=== PATIENT | female | born 1940 | race Caucasian/White ===

== ENCOUNTER → 2016-11-18 | Outpatient (CLI) | payer MEDICARE ==
[2016-11-18 08:37] LABS: Basophils # (A) 0.1 k/uL (0-0.2); Basophils % (A) 1 %; CH 30.2; CHCM 32.8; Eosinophils # (A) 0.7 k/uL (0-0.7); Eosinophils % (A) 8 %; HCT 43.3 % (34.0-46.0); HDW 2.44; HGB 13.8 gm/dL (11.4-16.0); Luc # (Auto) 0.17; Luc % (Auto) 2; Lymphocytes # (A) 2.6 k/uL (1.0-4.8); Lymphocytes % (A) 30 %; MCH 29.5 pg (25.0-35.0); MCV 92.3 fL (80.0-100.0); Mean Platelet Volume 6.3; Monocytes # (A) 0.5 k/uL (0-1.0); Monocytes % (A) 6 %; Neutrophils # (A) 4.5 k/uL (1.3-7.7); Neutrophils % (A) 53 %; RBC 4.69 m/uL (3.80-5.40); RDW 12.9 % (11.5-15.5); WBC 8.5 k/uL (3.8-10.6)
[2016-11-18 09:06] LABS: ALT 36 U/L (9-52); AST 36 U/L (14-36); Alkaline Phosphatase 59 U/L (38-126); Anion Gap 8 mmol/L; Blood Urea Nitrogen 17 mg/dL (7-17); Calcium 9.6 mg/dL (8.4-10.2); Carbon Dioxide 27 mmol/L (22-30); Chloride 104 mmol/L (98-107); Cholesterol 186 mg/dL (<200); Glucose 122 mg/dL (74-99); HDL Cholesterol 74 mg/dL (40-60); Non-African American GFR(MDRD) >60 (>60 ml/min/1.73 sqM); Potassium 4.7 mmol/L (3.5-5.1); Sodium 139 mmol/L (137-145); Total Bilirubin 0.5 mg/dL (0.2-1.3); Total Protein 6.5 g/dL (6.3-8.2); Triglycerides 109 mg/dL (<150)
== END | disposition home or self-care (01) ==
LOC: LABWHC1 07:54
PROVIDERS: ATTEND Family Medicine
DX: Z00.00 Encounter for general adult medical examination without abnormal findings (principal); E55.9 Vitamin D deficiency, unspecified
CPT/HCPCS: 36415; 80053; 80061; 82306; 84443; 85025

== ENCOUNTER 2016-12-16 20:29 | Emergency (ER) | payer MEDICARE ==
[2016-12-16] MEDS ORDERED: SODIUM CHLORIDE 0.9% 500 ML IV ONE (21:27)
[2016-12-16 21:45] LABS: Basophils # (A) 0.1 k/uL (0-0.2); Basophils % (A) 1 %; CH 31.1; Eosinophils # (A) 0.3 k/uL (0-0.7); Eosinophils % (A) 4 %; HCT 39.4 % (34.0-46.0); HDW 2.57; HGB 13.8 gm/dL (11.4-16.0); Luc # (Auto) 0.24; Luc % (Auto) 3; Lymphocytes # (A) 2.3 k/uL (1.0-4.8); Lymphocytes % (A) 26 %; MCH 31.4 pg (25.0-35.0); MCHC 35.1 g/dL (31.0-37.0); MCV 89.5 fL (80.0-100.0); Mean Platelet Volume 6.6; Monocytes # (A) 0.5 k/uL (0-1.0); Monocytes % (A) 6 %; Neutrophils # (A) 5.5 k/uL (1.3-7.7); Neutrophils % (A) 61 %; RBC 4.41 m/uL (3.80-5.40); RDW 12.7 % (11.5-15.5); WBC (Perox) 9.32
[2016-12-16 21:59] LABS: ALT 33 U/L (9-52); AST 25 U/L (14-36); Alkaline Phosphatase 58 U/L (38-126); Amylase 44 U/L (30-110); Anion Gap 9 mmol/L; Blood Urea Nitrogen 14 mg/dL (7-17); Calcium 8.7 mg/dL (8.4-10.2); Carbon Dioxide 19 mmol/L (22-30); Chloride 111 mmol/L (98-107); Glucose 114 mg/dL (74-99); Non-African American GFR(MDRD) >60 (>60 ml/min/1.73 sqM); Potassium 3.7 mmol/L (3.5-5.1); Sodium 139 mmol/L (137-145); Total Bilirubin 0.6 mg/dL (0.2-1.3); Total Protein 5.6 g/dL (6.3-8.2)
--- NOTE | 2016-12-16 22:00 | ED ---
General Adult HPI - General Chief complaint: Extremity Problem,Nontraumatic Stated complaint: RLQ Pain Time Seen by Provider: 12/16/16 21:15 Source: patient, EMS, RN notes reviewed Mode of arrival: EMS Limitations: no limitations - History of Present Illness Initial comments: This is a 76-year-old female presents emergency Department with chief complaint of right hip, back pain. Patient states this has been on and off for last week or 2. Patient states she has been overdoing at home with guarding. She states she's been bending over and she has had problems with this in the past. Patient states that the pains were so bad she's felt nausea and vomiting today. Patient went to [facility] today for pain shot and states that she was nauseated and she had some sweating so they're concerned and told her that her blood pressure was very low. Patient's blood pressure is hypertensive at this time. Patient states that pain in her back and hip have improved after Tylenol Motrin and she has no nausea vomiting this time. Patient denies chest pain, shortness breath, fever, chills, headache or dizziness. - Related Data Home Medications Medication Instructions Recorded Confirmed Aspirin 81 mg PO DAILY 12/23/13 12/25/13 Calcium Carbonate/Vitamin D3 1 each PO BID 12/23/13 12/25/13 [Caltrate 600 + D Tablet] Cholecalciferol [Vitamin D3] 1,000 unit PO DAILY 12/23/13 12/25/13 Citalopram Hydrobromide [CeleXA] 20 mg PO DAILY 12/23/13 12/25/13 Fish Oil/Dha/Epa [Fish Oil 1,200 1,000 mg PO BID 12/23/13 12/25/13 mg Fish Oil] I-Caps 1 tab PO DAILY 12/23/13 12/25/13 Magnesium Oxide [Mag-Ox] 250 mg PO DAILY 12/23/13 12/25/13 Melatonin 3 mg PO HS 12/23/13 12/25/13 Multivitamins, Thera [Multivitamin] 1 each PO DAILY 12/23/13 12/25/13 Pravastatin Sodium [Pravachol] 40 mg PO HS 12/23/13 12/25/13 Previous Rx's Medication Instructions Recorded Acetaminophen-Codeine 300-30mg 1 tab PO Q4H PRN #20 tablet 12/16/16 [Tylenol #3] Nitrofurantoin Monohyd/M-Cryst 100 mg PO Q12HR #14 cap 12/16/16 [Macrobid] Allergies Allergy/AdvReac Type Severity Reaction Status Date / Time cephalexin monohydrate Allergy Unknown Verified 12/23/13 16:39 [From Keflex] ciprofloxacin [From Cipro] Allergy Unknown Verified 12/23/13 16:39 ciprofloxacin HCl Allergy Unknown Verified 12/23/13 16:39 [From Cipro] fluconazole [From Diflucan] Allergy Unknown Verified 12/23/13 16:39 levofloxacin [From Levaquin] Allergy Unknown Verified 12/23/13 16:39 Penicillins Allergy Unknown Verified 12/23/13 16:39 Review of Systems ROS Statement: Those systems with pertinent positive or pertinent negative responses have been documented in the HPI. ROS Other: All systems not noted in ROS Statement are negative. Past Medical History Past Medical History: Hyperlipidemia Additional Past Medical History / Comment(s): HAS RED SPOT ON RT SIDE HIP, WHERE SKIN TAG IS. History of Any Multi-Drug Resistant Organisms: None Reported Past Surgical History: Joint Replacement Additional Past Surgical History / Comment(s): TOTAL RT KNEE Past Anesthesia/Blood Transfusion Reactions: No Reported Reaction Additional Past Anesthesia/Blood Transfusion Reaction / Comment(s): MOTION SICKNESS IN CHILDHOOD Past Psychological History: No Psychological Hx Reported Smoking Status: Never smoker Past Alcohol Use History: None Reported Past Drug Use History: None Reported General Exam Limitations: no limitations General appearance: alert, in no apparent distress Head exam: Present: atraumatic, normocephalic, normal inspection Respiratory exam: Present: normal lung sounds bilaterally. Absent: respiratory distress, wheezes, rales, rhonchi, stridor Cardiovascular Exam: Present: regular rate, normal rhythm, normal heart sounds. Absent: systolic murmur, diastolic murmur, rubs, gallop, clicks GI/Abdominal exam: Present: soft, tenderness (Minimal right lower quadrant, right inguinal region tenderness), normal bowel sounds. Absent: distended, guarding, rebound, rigid Extremities exam: Present: other (Mild tenderness the right hip patient has pain with range of motion, right leg is neurovascular intact equal quality equal warmth your pulses equal bilaterally) Back exam: Present: full ROM, tenderness (Mild tenderness the right low back, right buttocks region), paraspinal tenderness. Absent: vertebral tenderness Neurological exam: Present: alert, oriented X3, CN II-XII intact, reflexes normal. Absent: motor sensory deficit Course Vital Signs 12/16/16 12/16/16 12/16/16 20:40 21:50 22:14 Temperature 97.0 F L 97.8 F Pulse Rate 72 71 Respiratory 18 18 16 Rate Blood Pressure 175/75 166/74 O2 Sat by Pulse 98 99 Oximetry Medical Decision Making - Medical Decision Making 76 show female presented emergency department for right hip pain. She has multiple degenerative changes in her right hip and lumbar spine. Patient's labwork is unremarkable though she does have a UTI. Patient was treated for UTI return parameters were discussed. - Lab Data Result diagrams: 12/16/16 20:30 12/16/16 20:30 Lab Results 12/16/16 12/16/16 12/16/16 Range/Units 20:30 20:30 20:30 WBC 9.0 (3.8-10.6) k/uL RBC 4.41 (3.80-5.40) m/uL Hgb 13.8 (11.4-16.0) gm/dL Hct 39.4 (34.0-46.0) % MCV 89.5 (80.0-100.0) fL MCH 31.4 (25.0-35.0) pg MCHC 35.1 (31.0-37.0) g/dL RDW 12.7 (11.5-15.5) % Plt Count 274 (150-450) k/uL Neutrophils % 61 % Lymphocytes % 26 % Monocytes % 6 % Eosinophils % 4 % Basophils % 1 % Neutrophils # 5.5 (1.3-7.7) k/uL Lymphocytes # 2.3 (1.0-4.8) k/uL Monocytes # 0.5 (0-1.0) k/uL Eosinophils # 0.3 (0-0.7) k/uL Basophils # 0.1 (0-0.2) k/uL Sodium 139 (137-145) mmol/L Potassium 3.7 (3.5-5.1) mmol/L Chloride 111 H (98-107) mmol/L Carbon Dioxide 19 L (22-30) mmol/L Anion Gap 9 mmol/L BUN 14 (7-17) mg/dL Creatinine 0.80 (0.52-1.04) mg/dL Est GFR (MDRD) Af Amer >60 (>60 ml/min/1.73 sqM) Est GFR (MDRD) Non-Af >60 (>60 ml/min/1.73 sqM) Glucose 114 H (74-99) mg/dL Calcium 8.7 (8.4-10.2) mg/dL Total Bilirubin 0.6 (0.2-1.3) mg/dL AST 25 (14-36) U/L ALT 33 (9-52) U/L Alkaline Phosphatase 58 (38-126) U/L Troponin I <0.012 (0.000-0.034) ng/mL Total Protein 5.6 L (6.3-8.2) g/dL Albumin 3.5 (3.5-5.0) g/dL Amylase 44 (30-110) U/L Lipase 96 (23-300) U/L Urine Color Urine Appearance (Clear) Urine pH (5.0-8.0) Ur Specific [place] (1.001-1.035) Urine Protein (Negative) Urine Glucose (UA) (Negative) Urine Ketones (Negative) Urine Blood (Negative) Urine Nitrite (Negative) Urine Bilirubin (Negative) Urine Urobilinogen (<2.0) mg/dL Ur Leukocyte Esterase (Negative) Urine RBC (0-5) /hpf Urine WBC (0-5) /hpf Ur Squamous Epith Cells (0-4) /hpf 12/16/16 Range/Units 22:45 WBC (3.8-10.6) k/uL RBC (3.80-5.40) m/uL Hgb (11.4-16.0) gm/dL Hct (34.0-46.0) % MCV (80.0-100.0) fL MCH (25.0-35.0) pg MCHC (31.0-37.0) g/dL RDW (11.5-15.5) % Plt Count (150-450) k/uL Neutrophils % % Lymphocytes % % Monocytes % % Eosinophils % % Basophils % % Neutrophils # (1.3-7.7) k/uL Lymphocytes # (1.0-4.8) k/uL Monocytes # (0-1.0) k/uL Eosinophils # (0-0.7) k/uL Basophils # (0-0.2) k/uL Sodium (137-145) mmol/L Potassium (3.5-5.1) mmol/L Chloride (98-107) mmol/L Carbon Dioxide (22-30) mmol/L Anion Gap mmol/L BUN (7-17) mg/dL Creatinine (0.52-1.04) mg/dL Est GFR (MDRD) Af Amer (>60 ml/min/1.73 sqM) Est GFR (MDRD) Non-Af (>60 ml/min/1.73 sqM) Glucose (74-99) mg/dL Calcium (8.4-10.2) mg/dL Total Bilirubin (0.2-1.3) mg/dL AST (14-36) U/L ALT (9-52) U/L Alkaline Phosphatase (38-126) U/L Troponin I (0.000-0.034) ng/mL Total Protein (6.3-8.2) g/dL Albumin (3.5-5.0) g/dL Amylase (30-110) U/L Lipase (23-300) U/L Urine Color Light Yellow Urine Appearance Clear (Clear) Urine pH 8.0 (5.0-8.0) Ur Specific [place] 1.004 (1.001-1.035) Urine Protein Negative (Negative) Urine Glucose (UA) Negative (Negative) Urine Ketones 1+ H (Negative) Urine Blood Negative (Negative) Urine Nitrite Negative (Negative) Urine Bilirubin Negative (Negative) Urine Urobilinogen <2.0 (<2.0) mg/dL Ur Leukocyte Esterase Small H (Negative) Urine RBC <1 (0-5) /hpf Urine WBC 10 H (0-5) /hpf Ur Squamous Epith Cells <1 (0-4) /hpf Disposition Clinical Impression: UTI (urinary tract infection), Hip pain, Low back pain Disposition: HOME SELF-CARE Condition: Stable Instructions: Hip Pain (ED) Additional Instructions: Please return to the Emergency Department if symptoms worsen or any other concerns. Prescriptions: Acetaminophen-Codeine 300-30mg [Tylenol #3] 1 tab PO Q4H PRN #20 tablet PRN Reason: pain Nitrofurantoin Monohyd/M-Cryst [Macrobid] 100 mg PO Q12HR #14 cap Referrals: Kut,Clarence A, MD [Primary Care Provider] - 1-2 days Time of Disposition: 23:07
--- NOTE | 2016-12-16 22:02 | XR ---
EXAMINATION TYPE: XR Hip Complete RT DATE OF EXAM: 12/16/2016 CLINICAL HISTORY: Pain. TECHNIQUE: AP and frogleg views of the right hip are obtained. COMPARISON: Pelvic x-ray December 24, 2015. FINDINGS: There is no acute fracture/dislocation evident in the right hip. Mild to moderate axial cecelia int space loss with moderate acetabular spurring is redemonstrated. Additional spurring from greater trochanter is again seen. The overlying soft tissue appears unremarkable. IMPRESSION: There are moderate degenerative changes in right hip without significant change from ruth or.
--- NOTE | 2016-12-16 22:04 | XR ---
EXAMINATION TYPE: XR lumbar spine 2 or 3V DATE OF EXAM: 12/16/2016 CLINICAL HISTORY: Chronic low back pain. TECHNIQUE: Frontal and lateral images of the lumbar spine are obtained. COMPARISON: Lumbar spine x-ray December 24, 2015. FINDINGS: There are 6 lumbar type vertebral bodies redemonstrated. The lumbar spine redemonstrates levoconvex scoliosis centered at L3 level without evidence of acute fracture or dislocation. Vertebra l body heights are within normal limits. There is moderate multilevel disc space narrowing. There i s severe multilevel spurring. There is facet arthropathy lower lumbar levels. Sclerosis bilateral in ferior sacroiliac joints is noted. The overlying soft tissue appears unremarkable. IMPRESSION: Stable multilevel degenerative changes lumbar spine as detailed above.
[2016-12-16 22:59] LABS: Appearance,Urine Clear (Clear); Bilirubin,Urine Negative (Negative); Glucose,Urine (UA) Negative (Negative); Ketones,Urine 1+ (Negative); Leukocyte Esterase,Urine Small (Negative); Nitrite,Urine Negative (Negative); Particle Count 932; Protein,Urine Negative (Negative); RBC,Urine <1 /hpf (0-5); Specific Gravity,Urine 1.004 (1.001-1.035); Squamous Epithelial Cell,Urine <1 /hpf (0-4); UA Billing (MACRO vs. MICRO) MICRO; Urobilinogen,Urine <2.0 mg/dL (<2.0); WBC,Urine 10 /hpf (0-5)
[2016-12-16] MEDS ORDERED: NITROFURANTOIN MONOHYD/M-CRYST 100 MG CAP PO STA (23:08)
[2016-12-16 23:32] VITALS: BP 183/61; PULSE 73; RESP 18; TEMP 99
== END 2016-12-16 23:30 | disposition home or self-care (01) ==
LOC: EC 20:29
DX: N39.0 Urinary tract infection, site not specified (principal); M25.851 Other specified joint disorders, right hip; M47.816 Spondylosis without myelopathy or radiculopathy, lumbar region; E78.5 Hyperlipidemia, unspecified; Z88.1 Allergy status to other antibiotic agents; Z88.0 Allergy status to penicillin; Z79.82 Long term (current) use of aspirin; Z79.899 Other long term (current) drug therapy
CPT/HCPCS: 36415; 72100; 73502; 80053; 81001; 82150; 83690; 84484; 85025; 87086; 99284

== ENCOUNTER → 2017-02-14 | Outpatient (CLI) | payer MEDICARE ==
[2017-02-14 11:04] LABS: Hemoglobin A1C 5.9 % (4.2-6.1)
== END | disposition home or self-care (01) ==
LOC: LABWHC1 07:33
PROVIDERS: ATTEND Family Medicine
DX: R73.03 Prediabetes (principal)
CPT/HCPCS: 36415; 82947; 83036

== ENCOUNTER → 2017-11-20 | Outpatient (CLI) | payer MEDICARE ==
[2017-11-20 17:11] LABS: Hemoglobin A1C 5.7 % (4.0-6.0)
== END | disposition home or self-care (01) ==
LOC: LABWHC1 07:31
PROVIDERS: ATTEND Family Medicine
DX: R73.03 Prediabetes (principal)
CPT/HCPCS: 36415; 82947; 83036

== ENCOUNTER → 2018-05-06 | Outpatient (CLI) | payer MEDICARE ==
--- NOTE | 2018-05-06 09:20 | US ---
EXAMINATION TYPE: US duplex aorta DATE OF EXAM: 05/06/2018 COMPARISON: NONE CLINICAL HISTORY: Z13.6 screening for cardiovascular disorders. Screening EXAM MEASUREMENTS: Abdominal Aorta: Proximal: 1.5 x 1.5cm Mid: 1.4 x 1.6cm Distal: 1.4 x 1.6cm Bifurcation: RT: 0.7 x 0.9cm LT: 0.8 x 0.9cm No evidence of AAA at this time within visualized portions IMPRESSION: No evidence for abdominal aortic aneurysm.
== END | disposition home or self-care (01) ==
LOC: RADUSWWP 08:51
PROVIDERS: ATTEND Family Medicine
DX: Z13.6 Encounter for screening for cardiovascular disorders (principal)
CPT/HCPCS: 93979

== ENCOUNTER → 2018-05-14 | Outpatient (CLI) | payer MEDICARE ==
[2018-05-14 08:40] LABS: Basophils # (A) 0.1 k/uL (0-0.2); Basophils % (A) 1 %; Eosinophils # (A) 0.7 k/uL (0-0.7); Eosinophils % (A) 10 %; HCT 43.7 % (34.0-46.0); HGB 14.2 gm/dL (11.4-16.0); Lymphocytes # (A) 1.9 k/uL (1.0-4.8); Lymphocytes % (A) 28 %; MCH 29.1 pg (25.0-35.0); MCHC 32.5 g/dL (31.0-37.0); MCV 89.6 fL (80.0-100.0); Mean Platelet Volume 6.4; Monocytes # (A) 0.4 k/uL (0-1.0); Monocytes % (A) 6 %; Neutrophils # (A) 3.8 k/uL (1.3-7.7); Neutrophils % (A) 55 %; Platelet Count 310 k/uL (150-450); RBC 4.87 m/uL (3.80-5.40); RDW 12.9 % (11.5-15.5); WBC 6.9 k/uL (3.8-10.6)
[2018-05-14 17:03] LABS: Albumin 3.9 g/dL (3.80-4.90); Albumin/Globulin Ratio 2.6 (1.20-2.10); Anion Gap 6.8 mmol/L (4.00-12.00); Calcium 8.9 mg/dL (8.7-10.3); Carbon Dioxide 27.2 mmol/L (21.6-31.8); Globulin 1.5 g/dL (2.1-3.7); Potassium 4.8 mmol/L (3.5-5.5); Total Bilirubin 0.5 mg/dL (0.2-1.2); Total Protein 5.4 g/dL (6.2-8.2)
== END | disposition home or self-care (01) ==
LOC: LABWHC1 07:43
PROVIDERS: ATTEND Family Medicine
DX: Z00.00 Encounter for general adult medical examination without abnormal findings (principal); E55.9 Vitamin D deficiency, unspecified
CPT/HCPCS: 36415; 80053; 85025

== ENCOUNTER → 2018-08-09 | Outpatient (CLI) | payer MEDICARE ==
[2018-08-09 11:55] LABS: HCT 43.3 % (34.0-46.0); HGB 13.7 gm/dL (11.4-16.0); MCH 28.7 pg (25.0-35.0); MCHC 31.6 g/dL (31.0-37.0); Mean Platelet Volume 6.4; Platelet Count 347 k/uL (150-450); RBC 4.76 m/uL (3.80-5.40); RDW 13.1 % (11.5-15.5); WBC 8.5 k/uL (3.8-10.6)
[2018-08-09 12:13] LABS: Potassium 4.8 mmol/L (3.5-5.1)
[2018-08-09 12:21] LABS: Appearance,Urine Clear (Clear); Bacteria,Urine Rare /hpf; Bilirubin,Urine Negative (Negative); Blood,Urine Negative (Negative); Color,Urine Yellow; Glucose,Urine (UA) Negative (Negative); INR 0.9 (<1.2); Ketones,Urine Negative (Negative); Leukocyte Esterase,Urine Large (Negative); Mucus,Urine Rare /hpf; Nitrite,Urine Negative (Negative); Partial Thromboplastin Time 23.2 sec (22.0-30.0); Protein,Urine Negative (Negative); Prothrombin Time 9.7 sec (9.0-12.0); RBC,Urine <1 /hpf (0-5); Specific Gravity,Urine 1.012 (1.001-1.035); Squamous Epithelial Cell,Urine 2 /hpf (0-4); Transitional Epi Cells,Urine <1 /hpf (0-1); Urobilinogen,Urine <2.0 mg/dL (<2.0); WBC,Urine 24 /hpf (0-5)
== END ==
LOC: LABPAT 10:35
PROVIDERS: ATTEND Orthopaedic Surgery
DX: Z01.818 Encounter for other preprocedural examination (principal); Z01.812 Encounter for preprocedural laboratory examination; M17.12 Unilateral primary osteoarthritis, left knee
CPT/HCPCS: 80051; 81001; 82565; 84520; 85027; 85610; 85730; 87070

== ENCOUNTER → 2018-11-14 | Outpatient (CLI) | payer MEDICARE ==
--- NOTE | 2018-11-14 13:38 | US ---
EXAMINATION TYPE: US kidneys/renal and bladder DATE OF EXAM: 11/14/2018 COMPARISON: NONE CLINICAL HISTORY: N39.0 Chronic UTI. Recurrent UTI EXAM MEASUREMENTS: Right Kidney: 9.0 x 4.7 x 4.5 cm Left Kidney: 9.7 x 4.7 x 4.1 cm Right Kidney: 0.5cm echogenic focus inferior pole, 1.7 x 1.6cm hypoechoic area medial mid pole Left Kidney: no hydronephrosis or masses seen Bladder: wnl Bilateral Jets seen: yes There is no evidence for hydronephrosis at this point in time. No nephrolithiasis is seen. The urin latanya bladder is satisfactorily distended. Bilateral ureteral jets are seen. Scanning right kidney shows adjacent heterogeneous hyperechoic liver suggesting fatty infiltration, c orrelate clinically and with LFTs. IMPRESSION: Bladder felt within normal limits. No hydronephrosis is evident bilaterally. Nonspecific 5 mm nonshadowing hyperechoic focus lower pole level right kidney could reflect nonobstructing calcul us. Nonspecific 1.7 cm oval hypoechoic to anechoic lesion lower pole right kidney in which solid mass cannot be excluded. Follow-up renal protocol contrast-enhanced CT/MRI is advised.
== END | disposition home or self-care (01) ==
LOC: RADUSWWP 13:01
PROVIDERS: ATTEND Family Medicine
DX: R93.421 Abnormal radiologic findings on diagnostic imaging of right kidney (principal)
CPT/HCPCS: 76770

== ENCOUNTER → 2018-12-05 | Outpatient (CLI) | payer MEDICARE ==
[2018-12-05 10:43] LABS: Potassium 4.6 mmol/L (3.5-5.1)
--- NOTE | 2018-12-05 11:58 | CT ---
EXAMINATION TYPE: CT abdomen wo/w con DATE OF EXAM: 12/05/2018 HISTORY: Abnormal US per patient CT DLP: 865.2mGycm Automated Exposure Control for Dose Reduction was Utilized. CONTRAST: CT scan of the abdomen is performed without and with IV Contrast, patient injected with 100 mL of Iso kyle 300. COMPARISON: Renal ultrasound dated 11/14/2018 FINDINGS: LUNG BASES: There is multifocal subsegmental atelectasis at the lung bases. LIVER/GB: No significant abnormality is appreciated. No radiopaque calculi are seen within the gallbl adder. PANCREAS: No significant abnormality is seen. No ductal dilatation. SPLEEN: No significant abnormality is seen. No splenomegaly. ADRENALS: No significant abnormality is seen. No focal thickening or nodularity. KIDNEYS: The unenhanced images of the kidneys demonstrate a 4 mm nonobstructing right renal calculus. No left-sided nephrolithiasis or hydronephrosis of either kidney. When correlated with the prior ult rasound and appears the measurements were placed on a right extrarenal pelvis. No suspicious renal ma ss is seen on CT. BOWEL: Scattered colonic diverticula are present without pericolonic fat stranding. Moderate degree f ecal stasis is present. No dilated large or small bowel is seen. LYMPH NODES: No greater than 1cm abdominal or pelvic lymph nodes are appreciated. OSSEOUS STRUCTURES: There is grade 1 anterolisthesis of L3 on L4 and moderate to severe multilevel de generative disc disease of the visualized thoracolumbar and lumbosacral spine with bridging osteophyt es seen anteriorly suggesting diffuse idiopathic skeletal hyperostosis. Extensive facet arthropathy i s present at the lumbosacral junction. OTHER: Benign right gluteal subcutaneous tissue injection granuloma. Mild atherosclerosis of the abdo saravanan aorta and its branches. Very small fat filled periumbilical hernia. IMPRESSION: 1. No suspicious renal mass. The previously measured hypoechoic area on the ultrasound of 11/14/2018 ap pears to correspond to a right extrarenal pelvis, benign normal variant. 2. Nonobstructing 4 mm right renal calculus. 3. Extensive degenerative changes of the spine with grade 1 anterolisthesis of L3 on L4, likely on a degenerative basis.
== END | disposition home or self-care (01) ==
LOC: RADCTMAIN 09:36
PROVIDERS: ATTEND Family Medicine
DX: N20.0 Calculus of kidney (principal); N28.9 Disorder of kidney and ureter, unspecified
CPT/HCPCS: 80051; 82565; 84520; 74170; 36415; Q9967

== ENCOUNTER 2019-01-09 02:05 | Emergency (ER) | payer MEDICARE ==
[2019-01-09 02:17] VITALS: TEMP 97.9
[2019-01-09] MEDS ORDERED: ONDANSETRON 4 MG/2 ML VIAL IVP STA (02:37)
[2019-01-09] MEDS ORDERED: SODIUM CHLORIDE 0.9% 1,000 ML IV STA (02:37)
[2019-01-09] MEDS ORDERED: MORPHINE SULFATE 4 MG/ML SYRINGE IVP STA (03:01)
--- NOTE | 2019-01-09 03:11 | ED ---
General Adult HPI - General Source: patient, family, EMS Mode of arrival: EMS Limitations: no limitations <Gisselle Rojas - Last Filed: 01/09/19 22:55> <Joel Tang - Last Filed: 01/10/19 10:18> - General Chief complaint: Nausea/Vomiting/Diarrhea Stated complaint: Nausea, vomiting Time Seen by Provider: 01/09/19 02:09 - History of Present Illness Initial comments: 78-year-old female patient presents to the emergency department today for evaluation of vomiting and abdominal pain. Patient states symptoms started around 12:30 this morning. Patient states that she has been vomiting nonstop since. Unable to keep down any food or fluids. Patient states she is experiencing generalized abdominal pain and cramping. Patient denies any radiation of the pain through to her back. States she did have a bowel movement but was normal was not diarrhea. She denies any hematochezia, melena, or hematemesis. States that she does feel feverish and chilled. Patient denies any history of abdominal surgery. States that she has had a chronic urinary tract infection for the last few months. Not currently taking antibiotics. Denies any sick contacts or recent travel. Patient denies any recent rash, shortness breath, chest pain, numbness, tingling, dizziness, headache, visual changes, or any other complaints. (Gisselle Rojas) - Related Data Home Medications Medication Instructions Recorded Confirmed Aspirin 81 mg PO DAILY 12/23/13 08/20/18 Calcium Carbonate/Vitamin D3 1 each PO BID 12/23/13 08/20/18 [Caltrate 600 + D Tablet] Cholecalciferol [Vitamin D3] 1,000 unit PO DAILY 12/23/13 08/20/18 Fish Oil/Dha/Epa [Fish Oil 1,200 1,000 mg PO BID 12/23/13 08/20/18 mg Fish Oil] Magnesium Oxide [Mag-Ox] 250 mg PO DAILY 12/23/13 08/20/18 Multivitamins, Thera [Multivitamin] 1 each PO DAILY 12/23/13 08/20/18 Pravastatin Sodium [Pravachol] 40 mg PO HS 12/23/13 08/20/18 Celecoxib [CeleBREX] 200 mg PO BID 08/20/18 08/20/18 Chromium Picolinate 200 mcg PO DAILY 08/20/18 08/20/18 DULoxetine HCL [Cymbalta] 30 mg PO HS 08/20/18 08/20/18 Previous Rx's Medication Instructions Recorded Dicyclomine [Bentyl] 20 mg PO QID #15 tablet 01/09/19 Promethazine [Phenergan] 25 mg PO Q6HR PRN #12 tablet 01/09/19 Allergies Allergy/AdvReac Type Severity Reaction Status Date / Time cephalexin monohydrate Allergy Rash/Hives Verified 08/20/18 11:07 [From Keflex] ciprofloxacin [From Cipro] Allergy Rash/Hives Verified 08/20/18 11:07 ciprofloxacin HCl Allergy Rash/Hives Verified 08/20/18 11:07 [From Cipro] fluconazole [From Diflucan] Allergy Rash/Hives Verified 08/20/18 11:07 fluticasone [From Flonase] Allergy Rash/Hives Verified 01/09/19 02:18 levofloxacin [From Levaquin] Allergy Rash/Hives Verified 08/20/18 11:07 Penicillins Allergy Rash/Hives Verified 08/20/18 11:07 sulfamethoxazole Allergy Rash/Hives Verified 01/09/19 02:18 [From Bactrim] trimethoprim [From Bactrim] Allergy Rash/Hives Verified 01/09/19 02:18 Review of Systems ROS Other: All systems not noted in ROS Statement are negative. <Gisselle Rojas - Last Filed: 01/09/19 22:55> ROS Other: All systems not noted in ROS Statement are negative. <Joel Tang - Last Filed: 01/10/19 10:18> ROS Statement: Those systems with pertinent positive or pertinent negative responses have been documented in the HPI. Past Medical History Past Medical History: Hyperlipidemia Additional Past Medical History / Comment(s): HAS RED SPOT ON RT SIDE HIP, WHERE SKIN TAG IS. History of Any Multi-Drug Resistant Organisms: None Reported Past Surgical History: Joint Replacement Additional Past Surgical History / Comment(s): TOTAL RT KNEE Past Anesthesia/Blood Transfusion Reactions: No Reported Reaction Additional Past Anesthesia/Blood Transfusion Reaction / Comment(s): MOTION SICKNESS IN CHILDHOOD Past Psychological History: No Psychological Hx Reported Smoking Status: Never smoker Past Alcohol Use History: None Reported Past Drug Use History: None Reported <Gisselle Rojas - Last Filed: 01/09/19 22:55> General Exam Limitations: no limitations General appearance: alert, in no apparent distress, other (This a well- developed, well-nourished elderly female patient in no acute distress. Vital signs upon presentation are temperature 97.9F, pulse 76, respirations 20, blood pressure 165/72, pulse ox 100% on room air.) Eye exam: Present: normal appearance, PERRL, EOMI. Absent: scleral icterus, conjunctival injection, periorbital swelling ENT exam: Present: normal exam, normal oropharynx, mucous membranes moist Respiratory exam: Present: normal lung sounds bilaterally. Absent: respiratory distress, wheezes, rales, rhonchi, stridor Cardiovascular Exam: Present: regular rate, normal rhythm, normal heart sounds. Absent: systolic murmur, diastolic murmur, rubs, gallop, clicks GI/Abdominal exam: Present: soft, tenderness (Generalized tenderness), normal bowel sounds. Absent: distended, guarding, rebound, rigid Neurological exam: Present: alert, oriented X3, CN II-XII intact Psychiatric exam: Present: normal affect, normal mood Skin exam: Present: warm, dry, intact, normal color. Absent: rash <Gisselle Rojas - Last Filed: 01/09/19 22:55> Course Vital Signs 01/09/19 01/09/19 02:14 06:00 Temperature 97.9 F Pulse Rate 76 78 Respiratory 20 18 Rate Blood Pressure 165/72 163/68 O2 Sat by Pulse 100 100 Oximetry Medical Decision Making - Lab Data Result diagrams: 01/09/19 03:06 01/09/19 03:06 - EKG Data -: EKG Interpreted by Sd - Radiology Data Radiology results: report reviewed, image reviewed <Gisselle Rojas - Last Filed: 01/09/19 22:55> - Lab Data Result diagrams: 01/09/19 03:06 01/09/19 03:06 <Joel Tang - Last Filed: 01/10/19 10:18> - Medical Decision Making 78-year-old female patient presents to the emergency department today for evaluation of vomiting, diarrhea, abdominal pain started around 12:30 this morning. Physical examination did reveal generalized abdominal tenderness. Labs reviewed and did reveal elevated white blood cell count at 15. She did undergo CT abdomen and pelvis which was normal. She was given IV fluids, IV pain medication and nausea medication here in the emergency department. We are still awaiting urinalysis. Care will be handed over to my attending Dr. Tang to follow until disposition. (Gisselle Rojas) I saw this patient in conjunction with the physician technical assistant. I performed independent history and physical exam. Agree with case management. The patient is feeling better following medications. She does have suspicion she may have a case of food poisoning. As she is feeling much better she would like to go home for rest. We discussed return parameters and appropriate follow-up and further care. (Joel Tang) - Lab Data Lab Results 01/09/19 01/09/19 01/09/19 Range/Units 03:06 03:06 03:06 WBC 15.2 H (3.8-10.6) k/uL RBC 4.46 (3.80-5.40) m/uL Hgb 12.8 (11.4-16.0) gm/dL Hct 40.6 (34.0-46.0) % MCV 91.1 (80.0-100.0) fL MCH 28.8 (25.0-35.0) pg MCHC 31.6 (31.0-37.0) g/dL RDW 14.7 (11.5-15.5) % Plt Count 353 (150-450) k/uL Neutrophils % 74 % Lymphocytes % 17 % Monocytes % 5 % Eosinophils % 3 % Basophils % 1 % Neutrophils # 11.2 H (1.3-7.7) k/uL Lymphocytes # 2.6 (1.0-4.8) k/uL Monocytes # 0.7 (0-1.0) k/uL Eosinophils # 0.4 (0-0.7) k/uL Basophils # 0.1 (0-0.2) k/uL Sodium 140 (137-145) mmol/L Potassium 4.5 (3.5-5.1) mmol/L Chloride 106 (98-107) mmol/L Carbon Dioxide 21 L (22-30) mmol/L Anion Gap 13 mmol/L BUN 19 H (7-17) mg/dL Creatinine 0.82 (0.52-1.04) mg/dL Est GFR (CKD-EPI)AfAm 79 (>60 ml/min/1.73 sqM) Est GFR (CKD-EPI)NonAf 69 (>60 ml/min/1.73 sqM) Glucose 165 H (74-99) mg/dL Calcium 9.8 (8.4-10.2) mg/dL Total Bilirubin 0.6 (0.2-1.3) mg/dL AST 27 (14-36) U/L ALT 19 (9-52) U/L Alkaline Phosphatase 66 (38-126) U/L Troponin I <0.012 (0.000-0.034) ng/mL Total Protein 6.4 (6.3-8.2) g/dL Albumin 4.1 (3.5-5.0) g/dL Amylase 45 (30-110) U/L Lipase 91 (23-300) U/L Urine Color Urine Appearance (Clear) Urine pH (5.0-8.0) Ur Specific [place] (1.001-1.035) Urine Protein (Negative) Urine Glucose (UA) (Negative) Urine Ketones (Negative) Urine Blood (Negative) Urine Nitrite (Negative) Urine Bilirubin (Negative) Urine Urobilinogen (<2.0) mg/dL Ur Leukocyte Esterase (Negative) 01/09/19 Range/Units 05:10 WBC (3.8-10.6) k/uL RBC (3.80-5.40) m/uL Hgb (11.4-16.0) gm/dL Hct (34.0-46.0) % MCV (80.0-100.0) fL MCH (25.0-35.0) pg MCHC (31.0-37.0) g/dL RDW (11.5-15.5) % Plt Count (150-450) k/uL Neutrophils % % Lymphocytes % % Monocytes % % Eosinophils % % Basophils % % Neutrophils # (1.3-7.7) k/uL Lymphocytes # (1.0-4.8) k/uL Monocytes # (0-1.0) k/uL Eosinophils # (0-0.7) k/uL Basophils # (0-0.2) k/uL Sodium (137-145) mmol/L Potassium (3.5-5.1) mmol/L Chloride (98-107) mmol/L Carbon Dioxide (22-30) mmol/L Anion Gap mmol/L BUN (7-17) mg/dL Creatinine (0.52-1.04) mg/dL Est GFR (CKD-EPI)AfAm (>60 ml/min/1.73 sqM) Est GFR (CKD-EPI)NonAf (>60 ml/min/1.73 sqM) Glucose (74-99) mg/dL Calcium (8.4-10.2) mg/dL Total Bilirubin (0.2-1.3) mg/dL AST (14-36) U/L ALT (9-52) U/L Alkaline Phosphatase (38-126) U/L Troponin I (0.000-0.034) ng/mL Total Protein (6.3-8.2) g/dL Albumin (3.5-5.0) g/dL Amylase (30-110) U/L Lipase (23-300) U/L Urine Color Yellow Urine Appearance Clear (Clear) Urine pH 8.5 H (5.0-8.0) Ur Specific [place] 1.014 (1.001-1.035) Urine Protein Negative (Negative) Urine Glucose (UA) 1+ (Negative) Urine Ketones 1+ H (Negative) Urine Blood Negative (Negative) Urine Nitrite Negative (Negative) Urine Bilirubin Negative (Negative) Urine Urobilinogen <2.0 (<2.0) mg/dL Ur Leukocyte Esterase Negative (Negative) - EKG Data EKG Comments: EKG obtained at 0305 shows sinus rhythm with incomplete right bundle branch block. Prolonged QT interval. Ventricular rate of 76, PA interval 188, QRS duration 106, QT 446, QTc 501. (Gisselle Rojas) - Radiology Data CT abdomen and pelvis was obtained with contrast. Report reviewed in its entirety. Impression by Dr. Sherman shows no acute findings. (Gisselle Rojas) Disposition <Gisselle Rojas - Last Filed: 01/09/19 22:55> Is patient prescribed a controlled substance at d/c from ED?: No <Joel Tang - Last Filed: 01/10/19 10:18> Clinical Impression: Gastroenteritis Disposition: HOME SELF-CARE Condition: Good Instructions (If sedation given, give patient instructions): Acute Nausea and Vomiting (ED) Prescriptions: Dicyclomine [Bentyl] 20 mg PO QID #15 tablet Promethazine [Phenergan] 25 mg PO Q6HR PRN #12 tablet PRN Reason: Vomiting Referrals: Clarence Childs MD [Primary Care Provider] - 1-2 days
[2019-01-09 03:13] LABS: Basophils # (A) 0.1 k/uL (0-0.2); Basophils % (A) 1 %; Eosinophils # (A) 0.4 k/uL (0-0.7); Eosinophils % (A) 3 %; HCT 40.6 % (34.0-46.0); HGB 12.8 gm/dL (11.4-16.0); Lymphocytes # (A) 2.6 k/uL (1.0-4.8); Lymphocytes % (A) 17 %; MCH 28.8 pg (25.0-35.0); MCHC 31.6 g/dL (31.0-37.0); MCV 91.1 fL (80.0-100.0); Mean Platelet Volume 7.5; Monocytes # (A) 0.7 k/uL (0-1.0); Monocytes % (A) 5 %; Neutrophils # (A) 11.2 k/uL (1.3-7.7); Neutrophils % (A) 74 %; Platelet Count 353 k/uL (150-450); RBC 4.46 m/uL (3.80-5.40); RDW 14.7 % (11.5-15.5); WBC 15.2 k/uL (3.8-10.6)
[2019-01-09 03:25] LABS: Albumin 4.1 g/dL (3.5-5.0); Calcium 9.8 mg/dL (8.4-10.2); Potassium 4.5 mmol/L (3.5-5.1); Total Bilirubin 0.6 mg/dL (0.2-1.3); Total Protein 6.4 g/dL (6.3-8.2)
[2019-01-09] MEDS ORDERED: TRIMETHOBENZAMIDE 100 MG/ML 2 ML VIAL IM STA (03:38)
[2019-01-09] MEDS ORDERED: HYDROmorphone 1 MG/ML 1 ML SYRINGE IVP STA (03:48)
--- NOTE | 2019-01-09 05:07 | CT ---
EXAM: CT Abdomen and Pelvis With Intravenous Contrast CLINICAL HISTORY: ITS.REASON CT Reason: Abdominal pain; Vomiting TECHNIQUE: Axial computed tomography images of the abdomen and pelvis with intravenous contrast. This CT exam was performed using one or more of the following dose reduction techniques: automated exposure control, adjustment of the mA and/or kV according to patient size, and/or use of iterative reconstruction technique. COMPARISON: No relevant prior studies available. FINDINGS: Lung bases: Unremarkable. No mass. No consolidation. ABDOMEN: Liver: Unremarkable. No mass. Gallbladder and bile ducts: No abnormal ductal dilation or stones. Pancreas: Unremarkable. No mass. No ductal dilation. Spleen: Unremarkable. No splenomegaly. Adrenals: Unremarkable. No mass. Kidneys and ureters: Unremarkable. No solid mass. No hydronephrosis. Stomach and bowel: No obstruction. No mucosal thickening. PELVIS: Appendix: No findings to suggest acute appendicitis. Bladder: Unremarkable. No mass. Reproductive: Unremarkable as visualized. ABDOMEN and PELVIS: Intraperitoneal space: Unremarkable. No free air. No significant fluid collection. Bones/joints: No acute fracture. No dislocation. Soft tissues: Unremarkable. Vasculature: No abdominal aortic aneurysm. Lymph nodes: Unremarkable. No enlarged lymph nodes. IMPRESSION: No acute findings.
[2019-01-09 05:38] LABS: Appearance,Urine Clear (Clear); Bilirubin,Urine Negative (Negative); Blood,Urine Negative (Negative); Color,Urine Yellow; Glucose,Urine (UA) 1+ (Negative); Ketones,Urine 1+ (Negative); Leukocyte Esterase,Urine Negative (Negative); Nitrite,Urine Negative (Negative); PH, Urine 8.5 (5.0-8.0); Protein,Urine Negative (Negative); Specific Gravity,Urine 1.014 (1.001-1.035); Urobilinogen,Urine <2.0 mg/dL (<2.0)
[2019-01-09] MEDS ORDERED: KETOROLAC 30 MG/ML 1 ML VIAL IVP STA (05:49)
[2019-01-09 06:25] VITALS: BP 163/68; PULSE 78; RESP 18
[2019-01-09] MEDS ORDERED: PROMETHAZINE INJ 25 MG in SODIUM CHLORIDE 0.9% 50 ML IVPB STA (06:43)
[2019-01-09] MEDS ORDERED: DICYCLOMINE 10 MG/ML 2 ML AMP IM STA (06:43)
== END 2019-01-09 07:42 | disposition home or self-care (01) ==
LOC: EC 02:05
DX: K52.9 Noninfective gastroenteritis and colitis, unspecified (principal); I45.10 Unspecified right bundle-branch block; D72.829 Elevated white blood cell count, unspecified; E78.5 Hyperlipidemia, unspecified; Z79.82 Long term (current) use of aspirin; Z79.1 Long term (current) use of non-steroidal anti-inflammatories (NSAID); Z79.899 Other long term (current) drug therapy; Z88.1 Allergy status to other antibiotic agents; Z88.0 Allergy status to penicillin; Z88.2 Allergy status to sulfonamides; Z88.8 Allergy status to other drugs, medicaments and biological substances; Z96.651 Presence of right artificial knee joint
CPT/HCPCS: 99284; 96374; 96375; 96361; 96372; 36415; 93005; 80053; 82150; 83690; 84484; 85025; 81003; 74177; J2270; J0500; J2550; J3250; J2405; J1885; J1170; Q9967

== ENCOUNTER 2020-02-24 22:54 | Emergency (ER) | payer MEDICARE ==
[2020-02-24] MEDS ORDERED: MORPHINE SULFATE 2 MG/ML SYRINGE IVP STA (23:32)
[2020-02-24] MEDS ORDERED: ONDANSETRON 4 MG/2 ML VIAL IVP STA (23:32)
[2020-02-24 23:59] LABS: Basophils # (A) 0.1 k/uL (0-0.2); Basophils % (A) 1 %; Eosinophils # (A) 0.2 k/uL (0-0.7); Eosinophils % (A) 1 %; HCT 44.2 % (34.0-46.0); HGB 14.6 gm/dL (11.4-16.0); Lymphocytes # (A) 2.4 k/uL (1.0-4.8); Lymphocytes % (A) 17 %; MCH 29.6 pg (25.0-35.0); MCHC 33.1 g/dL (31.0-37.0); MCV 89.6 fL (80.0-100.0); Mean Platelet Volume 6.9; Monocytes # (A) 0.4 k/uL (0-1.0); Monocytes % (A) 3 %; Neutrophils % (A) 78 %; Platelet Count 343 k/uL (150-450); RBC 4.93 m/uL (3.80-5.40); RDW 12.7 % (11.5-15.5); WBC 14.2 k/uL (3.8-10.6)
[2020-02-25 00:07] LABS: Albumin 4.3 g/dL (3.5-5.0); Calcium 10.3 mg/dL (8.4-10.2); Potassium 4.4 mmol/L (3.5-5.1); Total Bilirubin 0.6 mg/dL (0.2-1.3); Total Protein 6.4 g/dL (6.3-8.2)
[2020-02-25] MEDS ORDERED: HYDROmorphone 0.5 MG/0.5 ML SYRINGE IVP STA ×2 (00:13→01:54)
--- NOTE | 2020-02-25 00:31 | CT ---
EXAMINATION TYPE: CT abdomen pelvis wo con DATE OF EXAM: 02/25/2020 COMPARISON: 01/09/2019 HISTORY: Abdominal pain CT DLP: 953.6 mGycm Automated exposure control for dose reduction was used. There is elevated right diaphragm that could relate to some diaphragm paralysis. There is interstitia l infiltrate and atelectasis at the lung bases. Heart is enlarged. There is no pericardial effusion. There is no pleural effusion. Liver shows no focal defect. Spleen is intact. There is no pancreatic mass. Gallbladder appears william l. Stomach is intact. There is no adrenal mass. Kidneys have normal size. There is no hydronephrosis. Ureters are not dilated. There is no retroperitoneal adenopathy. There are numerous large bowel dive rticula. Bladder distends smoothly. There is no inguinal hernia. There is no free fluid in the pelvis . Appendix is posterior and appears normal. There is multilevel spondylotic changes in the lumbar spi ne. There is no compression fracture. There is a mild degenerative first-degree L3-4 spondylolisthesi s. Bony pelvis is intact. Hip joints are intact. There is spinal stenosis related to facet arthropath y and posterior calcified disc herniation at L4-5. There is small umbilical hernia that contains fat. There is some arthritic change in the hip joints. There is right-sided acetabular spurring. IMPRESSION: Colonic diverticulosis without diverticulitis. Interstitial infiltrates and atelectasis at the lung b ases. Chronic elevation of the right diaphragm. 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 No significant change compared to old exam.
[2020-02-25 01:45] LABS: Amorphous Sediment,Urine Moderate /hpf; Appearance,Urine Cloudy (Clear); Bacteria,Urine Rare /hpf; Bilirubin,Urine Negative (Negative); Blood,Urine Trace (Negative); Color,Urine Yellow; Glucose,Urine (UA) Negative (Negative); Hyaline Casts,Urine 2 /lpf (0-2); Ketones,Urine 3+ (Negative); Leukocyte Esterase,Urine Trace (Negative); Mucus,Urine Rare /hpf; Nitrite,Urine Negative (Negative); Protein,Urine Negative (Negative); RBC,Urine 4 /hpf (0-5); Specific Gravity,Urine 1.014 (1.001-1.035); Squamous Epithelial Cell,Urine <1 /hpf (0-4); Urobilinogen,Urine <2.0 mg/dL (<2.0); WBC,Urine 5 /hpf (0-5)
[2020-02-25 02:29] VITALS: RESP 18
--- NOTE | 2020-02-25 03:25 | ED ---
Abdominal Pain HPI - General Chief Complaint: Abdominal Pain Stated Complaint: abd pain, vomit Time Seen by Provider: 02/24/20 23:24 Source: patient, family Mode of arrival: wheelchair Limitations: no limitations - History of Present Illness MD Complaint: abdominal pain -: hour(s) Location: diffuse Migration to: no migration Severity: moderate Quality: cramping Consistency: constant Improves With: nothing Worsens With: nothing Associated Symptoms: nausea, vomiting - Related Data Home Medications Medication Instructions Recorded Confirmed Aspirin 81 mg PO DAILY 12/23/13 08/20/18 Calcium Carbonate/Vitamin D3 1 each PO BID 12/23/13 08/20/18 [Caltrate 600 + D Tablet] Cholecalciferol [Vitamin D3] 1,000 unit PO DAILY 12/23/13 08/20/18 Fish Oil/Dha/Epa [Fish Oil 1,200 1,000 mg PO BID 12/23/13 08/20/18 mg Fish Oil] Magnesium Oxide [Mag-Ox] 250 mg PO DAILY 12/23/13 08/20/18 Multivitamins, Thera [Multivitamin] 1 each PO DAILY 12/23/13 08/20/18 Pravastatin Sodium [Pravachol] 40 mg PO HS 12/23/13 08/20/18 Celecoxib [CeleBREX] 200 mg PO BID 08/20/18 08/20/18 Chromium Picolinate 200 mcg PO DAILY 08/20/18 08/20/18 DULoxetine HCL [Cymbalta] 30 mg PO HS 08/20/18 08/20/18 Previous Rx's Medication Instructions Recorded Dicyclomine [Bentyl] 20 mg PO QID #15 tablet 01/09/19 Promethazine [Phenergan] 25 mg PO Q6HR PRN #12 tablet 01/09/19 Ondansetron Odt [Zofran ODT] 4 mg PO Q8HR PRN #10 tab 02/25/20 Allergies Allergy/AdvReac Type Severity Reaction Status Date / Time cephalexin monohydrate Allergy Rash/Hives Verified 02/24/20 23:06 [From Keflex] ciprofloxacin [From Cipro] Allergy Rash/Hives Verified 02/24/20 23:06 ciprofloxacin HCl Allergy Rash/Hives Verified 02/24/20 23:06 [From Cipro] fluconazole [From Diflucan] Allergy Rash/Hives Verified 02/24/20 23:06 fluticasone [From Flonase] Allergy Rash/Hives Verified 02/24/20 23:06 levofloxacin [From Levaquin] Allergy Rash/Hives Verified 02/24/20 23:06 Penicillins Allergy Rash/Hives Verified 02/24/20 23:06 sulfamethoxazole Allergy Rash/Hives Verified 02/24/20 23:06 [From Bactrim] trimethoprim [From Bactrim] Allergy Rash/Hives Verified 02/24/20 23:06 Review of Systems ROS Statement: Those systems with pertinent positive or pertinent negative responses have been documented in the HPI. ROS Other: All systems not noted in ROS Statement are negative. Constitutional: Denies: fever, chills Respiratory: Denies: cough, dyspnea Cardiovascular: Denies: chest pain, palpitations, edema Gastrointestinal: Reports: abdominal pain, nausea, vomiting. Denies: diarrhea, constipation, hematemesis, melena, hematochezia Genitourinary: Denies: dysuria, hematuria Musculoskeletal: Denies: back pain Skin: Denies: rash Neurological: Denies: headache, weakness, numbness Past Medical History Past Medical History: Hyperlipidemia Additional Past Medical History / Comment(s): HAS RED SPOT ON RT SIDE HIP, WHERE SKIN TAG IS. History of Any Multi-Drug Resistant Organisms: None Reported Past Surgical History: Joint Replacement Additional Past Surgical History / Comment(s): TOTAL RT KNEE Past Anesthesia/Blood Transfusion Reactions: No Reported Reaction Additional Past Anesthesia/Blood Transfusion Reaction / Comment(s): MOTION SICKNESS IN CHILDHOOD Past Psychological History: No Psychological Hx Reported Smoking Status: Never smoker Past Alcohol Use History: None Reported Past Drug Use History: None Reported General Exam Limitations: no limitations General appearance: alert, in no apparent distress Head exam: Present: atraumatic, normocephalic Eye exam: Present: normal appearance. Absent: scleral icterus, conjunctival injection ENT exam: Present: normal oropharynx Respiratory exam: Present: normal lung sounds bilaterally. Absent: respiratory distress, wheezes, rales, rhonchi, stridor Cardiovascular Exam: Present: regular rate, normal rhythm, normal heart sounds. Absent: systolic murmur, diastolic murmur, rubs, gallop GI/Abdominal exam: Present: soft. Absent: distended, tenderness, guarding, rebound, rigid, mass, pulsatile mass, hernia Extremities exam: Present: normal inspection, normal capillary refill. Absent: pedal edema, calf tenderness Back exam: Present: normal inspection. Absent: CVA tenderness (R), CVA tenderness (L) Neurological exam: Present: alert Skin exam: Present: warm, dry, intact, normal color. Absent: rash Course Vital Signs 02/24/20 02/25/20 02/25/20 23:03 02:28 03:37 Temperature 97.5 F L 97.6 F Pulse Rate 77 70 72 Respiratory 28 H 18 18 Rate Blood Pressure 147/65 129/56 108/40 O2 Sat by Pulse 100 100 96 Oximetry Medical Decision Making - Medical Decision Making Patient is 79-year-old woman with abdominal pain, nausea or vomiting. Following medication, patient is feeling much better. Reviewed the studies with the patient's and family. She feels like she would like to go home and at this this point patient seems stable to continue as outpatient. Discussed appropriate further care and follow-up as well as return parameters. - Lab Data Result diagrams: 02/24/20 23:35 02/24/20 23:35 Lab Results 02/24/20 02/24/20 02/25/20 Range/Units 23:35 23:35 01:20 WBC 14.2 H (3.8-10.6) k/uL RBC 4.93 (3.80-5.40) m/uL Hgb 14.6 (11.4-16.0) gm/dL Hct 44.2 (34.0-46.0) % MCV 89.6 (80.0-100.0) fL MCH 29.6 (25.0-35.0) pg MCHC 33.1 (31.0-37.0) g/dL RDW 12.7 (11.5-15.5) % Plt Count 343 (150-450) k/uL Neutrophils % 78 % Lymphocytes % 17 % Monocytes % 3 % Eosinophils % 1 % Basophils % 1 % Neutrophils # 11.0 H (1.3-7.7) k/uL Lymphocytes # 2.4 (1.0-4.8) k/uL Monocytes # 0.4 (0-1.0) k/uL Eosinophils # 0.2 (0-0.7) k/uL Basophils # 0.1 (0-0.2) k/uL Sodium 136 L (137-145) mmol/L Potassium 4.4 (3.5-5.1) mmol/L Chloride 104 (98-107) mmol/L Carbon Dioxide 21 L (22-30) mmol/L Anion Gap 11 mmol/L BUN 17 (7-17) mg/dL Creatinine 0.92 (0.52-1.04) mg/dL Est GFR (CKD-EPI)AfAm 69 (>60 ml/min/1.73 sqM) Est GFR (CKD-EPI)NonAf 60 (>60 ml/min/1.73 sqM) Glucose 183 H (74-99) mg/dL Calcium 10.3 H (8.4-10.2) mg/dL Total Bilirubin 0.6 (0.2-1.3) mg/dL AST 28 (14-36) U/L ALT 16 (4-34) U/L Alkaline Phosphatase 69 (38-126) U/L Total Protein 6.4 (6.3-8.2) g/dL Albumin 4.3 (3.5-5.0) g/dL Amylase 50 (30-110) U/L Lipase 72 (23-300) U/L Urine Color Yellow Urine Appearance Cloudy H (Clear) Urine pH 8.0 (5.0-8.0) Ur Specific [place] 1.014 (1.001-1.035) Urine Protein Negative (Negative) Urine Glucose (UA) Negative (Negative) Urine Ketones 3+ H (Negative) Urine Blood Trace H (Negative) Urine Nitrite Negative (Negative) Urine Bilirubin Negative (Negative) Urine Urobilinogen <2.0 (<2.0) mg/dL Ur Leukocyte Esterase Trace H (Negative) Urine RBC 4 (0-5) /hpf Urine WBC 5 (0-5) /hpf Ur Squamous Epith Cells <1 (0-4) /hpf Amorphous Sediment Moderate H (None) /hpf Urine Bacteria Rare H (None) /hpf Hyaline Casts 2 (0-2) /lpf Urine Mucus Rare H (None) /hpf Disposition Clinical Impression: Abdominal pain Disposition: HOME SELF-CARE Condition: Good Instructions (If sedation given, give patient instructions): Biliary Colic (ED), Abdominal Pain (ED) Prescriptions: Ondansetron Odt [Zofran ODT] 4 mg PO Q8HR PRN #10 tab PRN Reason: Nausea Is patient prescribed a controlled substance at d/c from ED?: No Referrals: Clarence Childs MD [Primary Care Provider] - 1-2 days
[2020-02-25 08:07] VITALS: BP 108/40; PULSE 72; TEMP 97.6
== END 2020-02-25 03:45 | disposition home or self-care (01) ==
LOC: EC 22:54
DX: R10.84 Generalized abdominal pain (principal); R11.2 Nausea with vomiting, unspecified; E78.5 Hyperlipidemia, unspecified; Z79.1 Long term (current) use of non-steroidal anti-inflammatories (NSAID); Z79.82 Long term (current) use of aspirin; Z79.899 Other long term (current) drug therapy; Z88.0 Allergy status to penicillin; Z88.1 Allergy status to other antibiotic agents; Z88.2 Allergy status to sulfonamides; Z88.3 Allergy status to other anti-infective agents; Z88.8 Allergy status to other drugs, medicaments and biological substances
CPT/HCPCS: 36415; 80053; 82150; 83690; 85025; 81001; 74176; 99284; 96374; 96375 ×2; 96376; J2405; J2270; J1170

== ENCOUNTER 2021-03-24 09:04 | Observation (INO) | payer MEDICARE ==
[2021-03-24] MEDS ORDERED: SODIUM CHLORIDE 0.9% 500 ML 500 ML IV STA (09:29)
[2021-03-24] MEDS ORDERED: METOCLOPRAMIDE 5 MG/ML 2 ML VIAL IVP STA (09:30)
[2021-03-24] MEDS ORDERED: MORPHINE SULFATE 4 MG/ML SYRINGE IVP STA (09:30)
--- NOTE | 2021-03-24 09:34 | ED ---
General Adult HPI - General Chief complaint: Headache Stated complaint: Headache Time Seen by Provider: 03/24/21 09:17 Source: patient, EMS, RN notes reviewed Mode of arrival: EMS Limitations: no limitations - History of Present Illness Initial comments: Patient is a pleasant 81-year-old female presenting to the emergency Department with complaints of headache. Onset of symptoms was 2 days ago. Headache was not sudden onset. Patient states discomfort is waxing and waning. Discomfort is mostly left sided. Patient has had some nausea and vomiting. Patient feels generally fatigued however no isolated area of weakness. Patient does not notice any facial weakness. No history of significant previous headaches. - Related Data Home Medications Medication Instructions Recorded Confirmed Aspirin 81 mg PO DAILY 12/23/13 03/24/21 Calcium Carbonate/Vitamin D3 1 tab PO BID 12/23/13 03/24/21 [Caltrate 600 + D Tablet] Cholecalciferol [Vitamin D3] 1,000 unit PO DAILY 12/23/13 03/24/21 Fish Oil/Dha/Epa [Fish Oil 1,200 1,000 mg PO BID 12/23/13 03/24/21 mg Fish Oil] Magnesium Oxide [Mag-Ox] 250 mg PO DAILY 12/23/13 03/24/21 Multivitamins, Thera [Multivitamin] 1 tab PO DAILY 12/23/13 03/24/21 Pravastatin Sodium [Pravachol] 40 mg PO HS 12/23/13 03/24/21 Celecoxib [CeleBREX] 200 mg PO BID 08/20/18 03/24/21 Chromium Picolinate 200 mcg PO DAILY 08/20/18 03/24/21 DULoxetine HCL [Cymbalta] 30 mg PO HS 08/20/18 03/24/21 Allergies Allergy/AdvReac Type Severity Reaction Status Date / Time cephalexin monohydrate Allergy Rash/Hives Verified 03/24/21 10:53 [From Keflex] ciprofloxacin [From Cipro] Allergy Rash/Hives Verified 03/24/21 10:53 ciprofloxacin HCl Allergy Rash/Hives Verified 03/24/21 10:53 [From Cipro] fluconazole [From Diflucan] Allergy Rash/Hives Verified 03/24/21 10:53 fluticasone [From Flonase] Allergy Rash/Hives Verified 03/24/21 10:53 levofloxacin [From Levaquin] Allergy Rash/Hives Verified 03/24/21 10:53 Penicillins Allergy Rash/Hives Verified 03/24/21 10:53 sulfamethoxazole Allergy Rash/Hives Verified 03/24/21 10:53 [From Bactrim] trimethoprim [From Bactrim] Allergy Rash/Hives Verified 03/24/21 10:53 Review of Systems ROS Statement: Those systems with pertinent positive or pertinent negative responses have been documented in the HPI. ROS Other: All systems not noted in ROS Statement are negative. Constitutional: Denies: fever Eyes: Denies: eye pain ENT: Denies: ear pain Respiratory: Denies: cough Cardiovascular: Denies: chest pain Endocrine: Denies: fatigue Gastrointestinal: Reports: nausea, vomiting. Denies: abdominal pain Genitourinary: Denies: dysuria Musculoskeletal: Denies: back pain Skin: Denies: rash Neurological: Reports: headache Past Medical History Past Medical History: Hyperlipidemia Additional Past Medical History / Comment(s): HAS RED SPOT ON RT SIDE HIP, WHERE SKIN TAG IS. History of Any Multi-Drug Resistant Organisms: None Reported Past Surgical History: Joint Replacement Additional Past Surgical History / Comment(s): TOTAL RT KNEE Past Anesthesia/Blood Transfusion Reactions: No Reported Reaction Additional Past Anesthesia/Blood Transfusion Reaction / Comment(s): MOTION SICKNESS IN CHILDHOOD Past Psychological History: No Psychological Hx Reported Smoking Status: Never smoker Past Alcohol Use History: None Reported Past Drug Use History: None Reported General Exam Limitations: no limitations General appearance: alert, in no apparent distress Head exam: Present: normocephalic, other (No tenderness over the temporal luis ry) Eye exam: Present: normal appearance, PERRL, EOMI. Absent: nystagmus ENT exam: Present: normal oropharynx Neck exam: Present: normal inspection. Absent: tenderness, meningismus Respiratory exam: Present: normal lung sounds bilaterally Cardiovascular Exam: Present: regular rate, normal rhythm GI/Abdominal exam: Present: soft. Absent: tenderness Extremities exam: Present: normal inspection Neurological exam: Present: alert, oriented X3, CN II-XII intact (Except for left lower facial weakness that does not appear to involve the forehead.) Expanded Neurological exam: Present: protecting the airway Speech: Present: fluid speech Cranial nerves: EOM's Intact: Normal, Facial Sensation: Normal Sensory exam: Upper Extremity Light Touch: Normal, Lower Extremity Light Touch: Normal Motor strength exam: RUE: 5, LUE: 5, RLE: 5, LLE: 5 Eye Response: (4) open spontaneously Motor Response: (6) obeys commands Verbal Response: (5) oriented Psychiatric exam: Present: normal affect, normal mood Skin exam: Present: normal color Course Vital Signs 03/24/21 09:14 Temperature 97.8 F Pulse Rate 77 Respiratory 18 Rate Blood Pressure 163/76 O2 Sat by Pulse 100 Oximetry - Reevaluation(s) Reevaluation #1: 03/24/21 09:32 Patient not considered a candidate for TPA secondary to unclear onset. EKG Findings - EKG Comments: EKG Findings:: Normal sinus rhythm with a rate of 77. [place] 168. QRS 106. QT 396. QTc 448. Left axis. Incomplete right bundle-branch block. No acute ST change. Medical Decision Making - Medical Decision Making Patient reevaluated and updated. Case discussed with Dr. Kaminski, who will admit covering for Dr. hCilds. Case also discussed with neurology, Dr. Key - Lab Data Result diagrams: 03/24/21 09:56 03/24/21 09:56 Lab Results 03/24/21 03/24/21 03/24/21 Range/Units 09:56 09:56 09:56 WBC 8.7 (3.8-10.6) k/uL RBC 4.74 (3.80-5.40) m/uL Hgb 15.1 (11.4-16.0) gm/dL Hct 43.9 (34.0-46.0) % MCV 92.6 (80.0-100.0) fL MCH 31.8 (25.0-35.0) pg MCHC 34.3 (31.0-37.0) g/dL RDW 12.4 (11.5-15.5) % Plt Count 317 (150-450) k/uL MPV 7.1 Neutrophils % 82 % Lymphocytes % 13 % Monocytes % 3 % Eosinophils % 0 % Basophils % 1 % Neutrophils # 7.2 (1.3-7.7) k/uL Lymphocytes # 1.1 (1.0-4.8) k/uL Monocytes # 0.3 (0-1.0) k/uL Eosinophils # 0.0 (0-0.7) k/uL Basophils # 0.1 (0-0.2) k/uL ESR 6 (0-20) mm/hr PT 10.0 (9.0-12.0) sec INR 0.9 (<1.2) APTT 21.8 L (22.0-30.0) sec Sodium 136 L (137-145) mmol/L Potassium 4.6 (3.5-5.1) mmol/L Chloride 105 (98-107) mmol/L Carbon Dioxide 22 (22-30) mmol/L Anion Gap 9 mmol/L BUN 14 (7-17) mg/dL Creatinine 0.71 (0.52-1.04) mg/dL Est GFR (CKD-EPI)AfAm >90 (>60 ml/min/1.73 sqM) Est GFR (CKD-EPI)NonAf 81 (>60 ml/min/1.73 sqM) Glucose 165 H (74-99) mg/dL Calcium 9.7 (8.4-10.2) mg/dL Total Bilirubin 1.0 (0.2-1.3) mg/dL AST 32 (14-36) U/L ALT 18 (4-34) U/L Alkaline Phosphatase 64 (38-126) U/L Total Protein 6.6 (6.3-8.2) g/dL Albumin 3.9 (3.5-5.0) g/dL - Radiology Data Radiology results: report reviewed (Computed tomography scan of the brain shows no acute hemorrhage or shift. Atrophy and chronic small vessel ischemia noted. CT angios shows mild to moderate plaque proximal internal carotid arteries bilateral without significant stenosis.), image reviewed (Chest x-ray reveals no acute process. Mild cardiomegaly and chronic parenchymal changes.) Disposition Clinical Impression: Cephalgia, Weakness on left side of face Disposition: ADMITTED IP TO THIS HOSP Is patient prescribed a controlled substance at d/c from ED?: No Referrals: Clarence Childs MD [Primary Care Provider] - 1-2 days Decision Time: 11:34
[2021-03-24 10:10] LABS: Basophils # (A) 0.1 k/uL (0-0.2); Basophils % (A) 1 %; Eosinophils % (A) 0 %; HCT 43.9 % (34.0-46.0); HGB 15.1 gm/dL (11.4-16.0); Lymphocytes # (A) 1.1 k/uL (1.0-4.8); Lymphocytes % (A) 13 %; MCH 31.8 pg (25.0-35.0); MCHC 34.3 g/dL (31.0-37.0); MCV 92.6 fL (80.0-100.0); Mean Platelet Volume 7.1; Monocytes # (A) 0.3 k/uL (0-1.0); Monocytes % (A) 3 %; Neutrophils # (A) 7.2 k/uL (1.3-7.7); Neutrophils % (A) 82 %; Platelet Count 317 k/uL (150-450); RBC 4.74 m/uL (3.80-5.40); RDW 12.4 % (11.5-15.5); WBC 8.7 k/uL (3.8-10.6)
[2021-03-24 10:23] LABS: ALT 18 U/L (4-34); African American GFR (CKD) >90 (>60 ml/min/1.73 sqM); Albumin 3.9 g/dL (3.5-5.0); Anion Gap 9 mmol/L; Blood Urea Nitrogen 14 mg/dL (7-17); Calcium 9.7 mg/dL (8.4-10.2); Carbon Dioxide 22 mmol/L (22-30); Chloride 105 mmol/L (98-107); Glucose 165 mg/dL (74-99); Non-African American GFR(CKD) 81 (>60 ml/min/1.73 sqM); Sodium 136 mmol/L (137-145); Total Protein 6.6 g/dL (6.3-8.2)
[2021-03-24 10:27] LABS: INR 0.9 (<1.2)
[2021-03-24 10:28] LABS: AST 32 U/L (14-36); Alkaline Phosphatase 64 U/L (38-126); Potassium 4.6 mmol/L (3.5-5.1)
[2021-03-24 10:31] LABS: Partial Thromboplastin Time 21.8 sec (22.0-30.0)
--- NOTE | 2021-03-24 10:32 | XR ---
EXAMINATION TYPE: XR chest 2V DATE OF EXAM: 03/24/2021 COMPARISON: Chest x-ray May 31, 2010 HISTORY: Weakness. TECHNIQUE: Frontal and lateral views of the chest are obtained. FINDINGS: Elevated right hemidiaphragm redemonstrated. There is chronic parenchymal change bilaterall y without suspicious new focal air space opacity, pleural effusion, or pneumothorax seen. The cardia c silhouette size is mildly enlarged. Slight underlying scoliotic curvature. Degenerative change left glenohumeral joint. Bridging osteophytes in the thoracolumbar spine noted. IMPRESSION: Mild cardiomegaly and chronic parenchymal changes without acute pulmonary process.
--- NOTE | 2021-03-24 10:35 | CT ---
EXAMINATION TYPE: CT brain wo con DATE OF EXAM: 03/24/2021 HISTORY: Lt sided weakness, CHACON CT DLP: 1089 mGycm. Automated Exposure Control for Dose Reduction was Utilized. TECHNIQUE: CT scan of the head is performed without contrast. COMPARISON: None. FINDINGS: There is no acute intracranial hemorrhage or midline shift identified. There is mild diff use ventricular and sulcal prominence consistent with diffuse age-related cerebral atrophy. There is mild to moderate low-attenuation in the periventricular white matter most likely consistent with chr onic small vessel ischemic change in patient of this age. The globes are intact and the visualized s inuses are clear. IMPRESSION: No acute intracranial hemorrhage or midline shift. There is mild diffuse age-related ce rebral atrophy and mild to moderate chronic small vessel ischemic change noted.
--- NOTE | 2021-03-24 10:41 | CT ---
EXAMINATION TYPE: CT angio head neck DATE OF EXAM: 03/24/2021 HISTORY: Lt sided weakness, CHACON COMPARISON: None. CT DLP: 430.2 mGycm. Automated Exposure Control for Dose Reduction was Utilized. TECHNIQUE: CTA scan of the head and neck are performed with IV Contrast, patient injected with 65 mL of Isovue 370, axial images are obtained, coronal and sagittal reformatted images are reviewed. 3D r econstructed images are created on an independent workstation and reviewed. FINDINGS: Carotid/Vascular Structures: Normal three-vessel origin from aortic arch without significant plaque o r stenosis. Tortuous course to the left subclavian artery with focal severe noncalcified plaque but u nder 50% stenosis. Tortuous course of the left common carotid artery proximal portion is noted. Michelle l origin right brachiocephalic artery from the right common carotid artery with mild eccentric noncal cified plaque at its origin but with no significant stenosis. No significant plaque or stenosis in re mainder of common carotid arteries bilaterally. [id number]-ny-dnsnpeiq mixed plaque just past right carotid bulb and the proximal internal carotid artery without significant stenosis. Similar finding on the l eft is noted. External carotid arteries bilaterally without significant plaque or stenosis. Moderate peripheral calcified plaque bilateral distal internal carotid arteries without significant stenosis. Patent anterior communicating artery is seen. No significant focal stenosis or aneurysm in the anteri or circulation. There are codominant vertebral arteries patent to basilar junction without significant plaque or sten osis. There are hypoplastic bilateral posterior indicating arteries. Posterior circulation shows no s ignificant stenosis or aneurysm Other: Underlying S-shaped scoliosis. [id number] multilevel spurring and disc space narrowing . Mild biapical pleural/parenchymal scarring in the lung apices. IMPRESSION: Mild to moderate plaque in the proximal internal carotid arteries bilaterally without sig nificant stenosis. No significant stenosis or aneurysm at the level of [place]. NASCET criteria was used in interpretation of this exam?
[2021-03-24 10:58] LABS: Erythrocyte Sedimentation Rate 6 mm/hr (0-20)
[2021-03-24] MEDS ORDERED: ASPIRIN 325 MG TAB PO STA (11:34)
[2021-03-24 12:12] LABS: Amorphous Sediment,Urine Rare /hpf; Appearance,Urine Clear (Clear); Bilirubin,Urine Negative (Negative); Blood,Urine Negative (Negative); Color,Urine Light Yellow; Glucose,Urine (UA) Negative (Negative); Hyaline Casts,Urine 1 /lpf (0-2); Ketones,Urine 1+ (Negative); Leukocyte Esterase,Urine Trace (Negative); Nitrite,Urine Negative (Negative); Protein,Urine Negative (Negative); RBC,Urine 1 /hpf (0-5); Specific Gravity,Urine 1.024 (1.001-1.035); Squamous Epithelial Cell,Urine 1 /hpf (0-4); Urobilinogen,Urine <2.0 mg/dL (<2.0); WBC,Urine 2 /hpf (0-5)
[2021-03-24] MEDS ORDERED: ACETAMINOPHEN TAB 325 MG TAB PO STA (12:16)
[2021-03-24] MEDS: SODIUM CHLORIDE 0.9% 1,000 ML IV SCH (12:21)
[2021-03-24] MEDS ORDERED: BENZOCAINE SPRAY 1 CAN MUCOUS MEM PRN (14:55)
[2021-03-24] MEDS ORDERED: MAG HYDROX/AL HYDROX/SIMETH 30 ML, HYOSCYAMINE ELIXIR 10 ML, CIMETIDINE HCL 300 MG, LID... PO PRN ×4 (14:59)
[2021-03-24] MEDS ORDERED: ONDANSETRON 4 MG/2 ML VIAL IVP PRN (14:59)
[2021-03-24] MEDS ORDERED: ACETAMINOPHEN TAB 325 MG TAB PO PRN (14:59)
--- NOTE | 2021-03-24 15:07 | P.HPIM ---
History of Present Illness H&P Date: 03/24/21 81 years old female patient of Dr. Childs with past medical history of hyperlipidemia comes in with acute onset of headache associated with abdominal pain for the past 3 days. Patient has not been eating at home and had some soup last night. Patient denies eating outside denies any fever or chills at home. She has been feeling unwell for the past 3 days but denies any other symptoms. Patient did not notice the left-sided droop until evaluated by the ER. Headache has improved since patient got some Tylenol . Patient had a fever of 100.8 Patient does document fatigue and significant abdominal pain which brought her to the hospital. Abdominal pain has improved with Zofran. Vitals were evaluated patient and temp of 97.8 pulse 77 respiratory rate 18 blood pressure 163/76. Labs are reviewed patient has a hemoglobin of 15 MCV 5043.9 platelets 317 with a sodium 136 potassium 4.6 chloride 105 bicarb 22 BUN 14 creatinine 0.7 glucose 165 chest x-ray suggested no acute process CT of the brain shows no acute hemorrhage or shift. Mild diffuse age-related cerebral atrophy with mild to moderate chronic small vessel ischemic changes CT angiogram suggestive of mild to moderate plaque in the proximal internal carotid arteries bilaterally without significant stenosis no significant stenosis or aneurysm at the level of [place] ECG suggestive, sinus rhythm and incomplete right bundle branch block ROS Constitutional: Endorses chills, endorses fever, endorses lethargy, endorses malaise Eyes: denies decreased vision, denies diplopia, denies discharge, denies pain endorses difficulty closing her eyes on the left side Ears: deny: decreased hearing Ears, nose, mouth and throat: Denies dental pain, endorses headache, Denies nasal discharge, Denies nose pain sores on the tongue on the left Cardiovascular: Denies chest pain, Denies decreased exercise tolerance, Denies edema, Denies high blood pressure, Denies irregular heart beat, Denies palpitations, Denies paroxysmal nocturnal dyspnea, Denies rapid heart beat, Denies shortness of breath Respiratory: Denies congestion, Denies cough, Denies cough with sputum, Denies dyspnea, Denies home oxygen, Denies wheezing Gastrointestinal: Endorses abdominal pain, Denies change in bowel habits, Denies coffee ground emesis, Denies early satiety, Denies excessive gas, Denies heartburn, Denies hematemesis, Denies hematochezia, Denies loss of appetite, endorses nausea and vomiting Genitourinary: Denies dysuria, Denies flank pain, Denies kidney stones, Denies menorrhagia, Denies urgency, Denies urinary frequency Musculoskeletal: Denies gait dysfunction, Denies limitation of motion, Denies morning stiffness, Denies muscle cramps Integumentary: Denies rash, Denies wounds, Denies brittle nails, Denies change in hair/nails, Denies darkening of skin Neurological: Denies balance difficulties, Denies change in speech, Denies double vision, Denies gait dysfunction, Denies loss of vision, Denies motor disturbance, Denies numbness, Denies paralysis, Denies paresthesias, Denies seizures endorses headache and endorses facial droop Psychiatric: Denies anxiety, Denies depression Endocrine: Denies excessive sweating, Denies excessive thirst, Denies high blood sugars, Denies palpitations Hematologic/Lymphatic: Denies easy bruising, Denies lymphadenopathy Social history Nonsmoker, nondrinker lives by herself and does not use any cane or walker Family history Father at the age of 83 no medical etiology Mother at the age of 94 from old age has history of Cutler's spelled C Brother had Parkinson disease of old age Had 2 sisters both one sister had liver disorder of old age Physical exam - Constitutional General appearance: cooperative, no acute distress, visual facial droop on the left, appears tired - EENT Eyes: anicteric sclerae, PERRLA, normal appearance, difficulty closing her eye on the left ENT: hearing grossly normal, pinpoint sores noted on the anterior side of the tongue - Neck Neck: no lymphadenopathy, normal ROM, no other, no rigidity, no stridor, no thyromegaly - Respiratory Respiratory: bilateral: CTA, negative: diminished, dullness, rales, rhonchi - Cardiovascular Rhythm: regular Heart sounds: normal: S1, S2 Abnormal Heart Sounds: no systolic murmur, no diastolic murmur, no rub, no S3 Gallop, no S4 Gallop, no click, no other - Gastrointestinal General gastrointestinal: normal bowel sounds, soft and nontender - Integumentary Integumentary: no rash - Neurologic Neurologic: CNII-XII intact except for facial droop on the left, decreased wrinkles on the left forehead reduced nasal fold on the left, no slurring of speech better from vision intact, no motor or sensory deficit no gait instability [id number] test normal, normal proprioception normal reflexes - Musculoskeletal Musculoskeletal: gait normal, strength equal bilaterally - Psychiatric Psychiatric: A&O x's 3, appropriate affect Assessment and plan #1 left facial paralysis involving the forehead rule out brainstem stroke versus Cutler's palsy . CT head and CTA negative for acute occlusion. Not a TPA candidate as unknown onset. Rule out stroke. Echocardiogram and MRA ordered. Continue aspirin and pravastatin. Aspirin increased to 325 mg . PTOT evaluation. Lipid panel ordered. PTOT consulted #2 headache Rule out aseptic meningitis. Temporal arteritis appears unlikely ESR normal. No vision deficit. Headache improved with Tylenol. No neck rigidity. No confusion. Infectious disease consulted for possible lumbar puncture #3 fever likely acute viral illness. Patient's presentation could be suggestive of aseptic meningitis. Continue seizure precautions. Infectious disease consulted #4 abdominal pain no diarrhea no constipation improved with Reglan. Continue Zofran as needed for nausea Protonix started at 40 mg daily #5 hyperlipidemia continue pravastatin at 40 mg by mouth daily #6 DVT prophylaxis with heparin every 12 #7 GI prophylaxis with protonix 40 mg orally daily #8 CODE STATUS do not resuscitate Past Medical History Past Medical History: Hyperlipidemia Additional Past Medical History / Comment(s): HAS RED SPOT ON RT SIDE HIP, WHERE SKIN TAG IS. History of Any Multi-Drug Resistant Organisms: None Reported Past Surgical History: Joint Replacement Additional Past Surgical History / Comment(s): TOTAL RT KNEE Past Anesthesia/Blood Transfusion Reactions: No Reported Reaction Additional Past Anesthesia/Blood Transfusion Reaction / Comment(s): MOTION SICKNESS IN CHILDHOOD Past Psychological History: No Psychological Hx Reported Smoking Status: Never smoker Past Alcohol Use History: None Reported Past Drug Use History: None Reported Medications and Allergies Home Medications Medication Instructions Recorded Confirmed Type Aspirin 81 mg PO DAILY 12/23/13 03/24/21 History Calcium Carbonate/Vitamin D3 1 tab PO BID 12/23/13 03/24/21 History [Caltrate 600 + D Tablet] Cholecalciferol [Vitamin D3] 1,000 unit PO DAILY 12/23/13 03/24/21 History Fish Oil/Dha/Epa [Fish Oil 1,200 1,000 mg PO BID 12/23/13 03/24/21 History mg Fish Oil] Magnesium Oxide [Mag-Ox] 250 mg PO DAILY 12/23/13 03/24/21 History Multivitamins, Thera [Multivitamin] 1 tab PO DAILY 12/23/13 03/24/21 History Pravastatin Sodium [Pravachol] 40 mg PO HS 12/23/13 03/24/21 History Celecoxib [CeleBREX] 200 mg PO BID 08/20/18 03/24/21 History Chromium Picolinate 200 mcg PO DAILY 08/20/18 03/24/21 History DULoxetine HCL [Cymbalta] 30 mg PO HS 08/20/18 03/24/21 History Allergies Allergy/AdvReac Type Severity Reaction Status Date / Time cephalexin monohydrate Allergy Rash/Hives Verified 03/24/21 10:53 [From Keflex] ciprofloxacin [From Cipro] Allergy Rash/Hives Verified 03/24/21 10:53 ciprofloxacin HCl Allergy Rash/Hives Verified 03/24/21 10:53 [From Cipro] fluconazole [From Diflucan] Allergy Rash/Hives Verified 03/24/21 10:53 fluticasone [From Flonase] Allergy Rash/Hives Verified 03/24/21 10:53 levofloxacin [From Levaquin] Allergy Rash/Hives Verified 03/24/21 10:53 Penicillins Allergy Rash/Hives Verified 03/24/21 10:53 sulfamethoxazole Allergy Rash/Hives Verified 03/24/21 10:53 [From Bactrim] trimethoprim [From Bactrim] Allergy Rash/Hives Verified 03/24/21 10:53 Physical Exam Vitals: Vital Signs Temp Pulse Resp BP Pulse Ox 03/24/21 11:59 100.8 F H 89 17 167/71 96 03/24/21 09:14 97.8 F 77 18 163/76 100 Intake and Output 03/23/21 03/24/21 03/24/21 22:59 06:59 14:59 Other: Weight 81.647 kg Results CBC & Chem 7: 03/24/21 09:56 03/24/21 09:56 Labs: Abnormal Lab Results - Last 24 Hours (Table) 03/24/21 03/24/21 03/24/21 Range/Units 09:56 09:56 09:56 APTT 21.8 L (22.0-30.0) sec Sodium 136 L (137-145) mmol/L Glucose 165 H (74-99) mg/dL Urine Ketones 1+ H (Negative) Ur Leukocyte Esterase Trace H (Negative) Amorphous Sediment Rare H (None) /hpf
--- NOTE | 2021-03-24 15:09 | P.CNNES ---
History of Present Illness Consult date: 03/24/21 Requesting physician: Virgilio Paulino Reason for Consult: headache and facial weakness History of Present Illness: 81-year-old woman with medical history of hyperlipidemia, chronic tinnitus who presents emergency department on 03/24/2021 for new onset headache for the past 3 days. The patient is accompanied with her daughter. Patient stated that she has new onset headache disorder that is over the left hemisphere and she pointed over the left frontal temporal region, but feels a hurting pain and she stated that it was 8/10. She denies of any photophobia or phonophobia. She denies of any nausea or vomiting. She denies of any visual disturbance associate with this. She said that she's been taking aiku-lbl-eowwqmr pain medication and that could not helps with the headache but the headache has been waxing and waning. She denies any history of headaches in the past. She denies of any stroke, seizures in the past. She denies of any fevers recently, any sick contacts. She denies of any focal weakness, numbness, difficulty getting her words out or difficulty swallowing. As stated above she denies of any visual disturbances. She has chronic tinnitus but denies any worsening or any new hearing loss. [place] any recent travel. Denies any rash. Some of the patient's home medication is aspirin 81 mg, Cymbalta 30 mg daily at bedtime, magnesium, multivitamin, Lipitor 40 mg daily at bedtime, Celebrex, vitamin D3 Some of the workup in the hospital consisted of: Initial vital signs was blood pressure 163/76, heart rate is 77, respiratory of 18, temperature of 97.8 Fahrenheit oral pulse ox 100% room air. CBC with differential is unremarkable. the ESR is 6 which is within normal limits Chemistry panel is the glucose was 165 which is slightly elevated the rest does not seem remarkable. Weber virus patient are not detected. CT of the head is reported as no acute intracranial hemorrhage or midline shift. There is mild diffuse age-related cerebral atrophy and mild to moderate chronic small vessel ischemic changes noted. CT angiography of the head and neck was reported as mild to moderate plaque in the proximal internal carotid arteries bilaterally without significant stenosis. No significant stenosis or aneurysm at the level [place]. The ED felt the patient had left facial weakness Review of Systems Review of system: The 12 point system was reviewed and apparent positive and negative per HPI. Past Medical History Past Medical History: Hyperlipidemia Additional Past Medical History / Comment(s): HAS RED SPOT ON RT SIDE HIP, WHERE SKIN TAG IS. History of Any Multi-Drug Resistant Organisms: None Reported Past Surgical History: Joint Replacement Additional Past Surgical History / Comment(s): TOTAL RT KNEE Past Anesthesia/Blood Transfusion Reactions: No Reported Reaction Additional Past Anesthesia/Blood Transfusion Reaction / Comment(s): MOTION SICKNESS IN CHILDHOOD Past Psychological History: No Psychological Hx Reported Smoking Status: Never smoker Past Alcohol Use History: None Reported Past Drug Use History: None Reported Medications and Allergies Home Medications Medication Instructions Recorded Confirmed Type Aspirin 81 mg PO DAILY 12/23/13 03/24/21 History Calcium Carbonate/Vitamin D3 1 tab PO BID 12/23/13 03/24/21 History [Caltrate 600 + D Tablet] Cholecalciferol [Vitamin D3] 1,000 unit PO DAILY 12/23/13 03/24/21 History Fish Oil/Dha/Epa [Fish Oil 1,200 1,000 mg PO BID 12/23/13 03/24/21 History mg Fish Oil] Magnesium Oxide [Mag-Ox] 250 mg PO DAILY 12/23/13 03/24/21 History Multivitamins, Thera [Multivitamin] 1 tab PO DAILY 12/23/13 03/24/21 History Pravastatin Sodium [Pravachol] 40 mg PO HS 12/23/13 03/24/21 History Celecoxib [CeleBREX] 200 mg PO BID 08/20/18 03/24/21 History Chromium Picolinate 200 mcg PO DAILY 08/20/18 03/24/21 History DULoxetine HCL [Cymbalta] 30 mg PO HS 08/20/18 03/24/21 History Allergies Allergy/AdvReac Type Severity Reaction Status Date / Time cephalexin monohydrate Allergy Rash/Hives Verified 03/24/21 10:53 [From Keflex] ciprofloxacin [From Cipro] Allergy Rash/Hives Verified 03/24/21 10:53 ciprofloxacin HCl Allergy Rash/Hives Verified 03/24/21 10:53 [From Cipro] fluconazole [From Diflucan] Allergy Rash/Hives Verified 03/24/21 10:53 fluticasone [From Flonase] Allergy Rash/Hives Verified 03/24/21 10:53 levofloxacin [From Levaquin] Allergy Rash/Hives Verified 03/24/21 10:53 Penicillins Allergy Rash/Hives Verified 03/24/21 10:53 sulfamethoxazole Allergy Rash/Hives Verified 03/24/21 10:53 [From Bactrim] trimethoprim [From Bactrim] Allergy Rash/Hives Verified 03/24/21 10:53 Physical Examination - Vital Signs Vital Signs: Vital Signs Temp Pulse Resp BP Pulse Ox 03/24/21 11:59 100.8 F H 89 17 167/71 96 03/24/21 09:14 97.8 F 77 18 163/76 100 Intake and Output 03/23/21 03/24/21 03/24/21 22:59 06:59 14:59 Other: Weight 81.647 kg GENERAL: The patient is lying in bed and is not in acute distress. CHEST: The heart rate is regular rate rhythm. No murmurs to auscultation. No carotid bruit bilaterally. LUNG: Clear to auscultation bilaterally no wheezing noted throughout. Not labored breathing. ABDOMEN/GI: Bowel sounds present in all 4 quadrants. No tenderness to palpation throughout. NEUROLOGICAL: Higher mental function: The patient is awake, alert, oriented to self, place and time. Patient is following commands. No aphasia and no neglect. Cranial nerves: The pupils are round, equal and reactive to light and accommodation. Visual mishra are full to confrontation throughout. Extraocular movement is intact no nystagmus is noted. Facial sensation is normal to touch throughout. The facial strength is has upper and lower facial weakness (left lower facial, puff her cheeks on the left side compared to right , easily to open left eye upon been shut, raising left eye with furrow). Hearing is normal bilaterally to hand rub. Tongue is midline and moved [id number] without any difficulty. No dysarthria is noted. Shoulder shrug is normal bilaterally. Motor: Gait is deferred. The strength is 5 over 5 throughout. Normal tone and bulk. Cerebellum: Normal finger to nose heel to zamora bilaterally. She had end action tremor with finger to nose (she said old) Sensation: Sensation is normal to touch throughout. Reflexes (right/left): 2+ throughout. Plantars: On few time felt the left toe is upgoing but on repeated tried it was mute. Mute over the right. 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 Unknown etiology. Rule out any central cause such as stroke or mass. Possibly viral. Cephalgia: Rule out any intracranial mass or any intracranial lesion Left facial weakness: Rule out stroke Current Hypertension possibly due to her headache History of hyperlipidemia Plan: I ordered MRI the brain with and without to rule out stroke also rule out mass. If MRI of the brain is negative for stroke or mass then I would recommend for the patient to be started on valacyclovir as well as by mouth Prednsisone. Recommend left eye patch and eyes drops to keep the eye moist to prevent corneal ulcer. Patient was started on aspirin 325 daily and will continue the patient's home dose of Pravastatin 40mg qhs. Neuro checks. 2-D echo and lipid panel are ordered and pending. Consulted PT and OT Ordered TSH and HbA1c. On cardiac monitoring We'll defer the rest of the medical management to the primary team. For DVT prophylaxis we'll defer that to the primary team. Upon discharge, the patient needs to follow-up with a neurologist as outpatient within 1-2 weeks. The plan is discussed with patient and her daughter. Thank you for the consultation. Mario Key MD Neuro-Hospitalist Time with Patient: Greater than 30
[2021-03-24] MEDS ORDERED: ARTIFICIAL TEARS OINTMENT 3.5 GM TUBE LEFT EYE PRN (18:20)
[2021-03-24] MEDS: HEPARIN SODIUM,PORCINE/PF 5,000 UNIT/0.5 ML SYRINGE SQ SCH (20:10)
[2021-03-24] MEDS ORDERED: DULoxetine HCL 30 MG CAPSULE.DR PO SCH (21:00)
[2021-03-24] MEDS ORDERED: PRAVASTATIN SODIUM 40 MG TAB PO SCH (21:00)
[2021-03-25] MEDS: SODIUM CHLORIDE 0.9% 1,000 ML IV SCH ×2 (00:27→11:42)
[2021-03-25 07:09] LABS: Herpes simplex I and/or II IgM 0.3 INDEX (<=0.90); Herpes simplex IgG I Ab 0.06 (< or = 0.90); Herpes simplex IgG II Ab 11.2 (< or = 0.90)
[2021-03-25] MEDS ORDERED: PANTOPRAZOLE 40 MG TABLET PO SCH (07:30)
[2021-03-25 08:17] VITALS: RESP 16
[2021-03-25] MEDS: HEPARIN SODIUM,PORCINE/PF 5,000 UNIT/0.5 ML SYRINGE SQ SCH (08:38)
[2021-03-25] MEDS ORDERED: ASPIRIN 325 MG TAB PO SCH (09:00)
[2021-03-25] MEDS ORDERED: MELOXICAM 7.5 MG TAB PO SCH (09:15)
[2021-03-25 09:34] LABS: Chol/HDL Ratio 2.65; LDL Cholesterol,Calculated 79.2 mg/dL (0.0-131.0); VLDL Calculation 19.8 mg/dL (5.00-40.00)
--- NOTE | 2021-03-25 10:00 | ECHOF ---
Referral Reason:Thrombus MEASUREMENTS -------- HEIGHT: 152.4 cm WEIGHT: 81.6 kg BP: RVIDd: 2.5 cm (< 3.3) IVSd: 1.0 cm (0.6 - 1.1) LVIDd: 4.4 cm (3.9 - 5.3) LVPWd: 1.5 cm (0.6 - 1.1) IVSs: 1.3 cm LVIDs: 3.3 cm LVPWs: 1.6 cm Ao Diam: 2.8 cm (2.0 - 3.7) AV Cusp: 1.8 cm (1.5 - 2.6) LA Diam: 3.7 cm (2.7 - 3.8) MV EXCURSION: 21.518 mm (> 18.000) MV EF SLOPE: 59 mm/s (70 - 150) EPSS: 0.2 cm MV E Carlin: 0.56 m/s MV DecT: 210 ms MV A Carlin: 0.85 m/s MV E/A Ratio: 0.65 RAP: 5.00 mmHg RVSP: 13.69 mmHg FINDINGS -------- Sinus rhythm. This was a technically good study. LV size, wall thickness and systolic function are normal, with an EF greater than 55%. The left isabel tricular size is normal. The right ventricle is normal in size. Normal LA size by volume 22+/-6 ml/m2. The right atrial size is normal. There is mild aortic valve sclerosis. There is mild aortic regurgitation. Mild mitral annular calcification present. Mild mitral regurgitation is present. Mild tricuspid regurgitation present. Right ventricular systolic pressure is normal at < 35 mmHg. Trace/mild (physiologic) pulmonic regurgitation. Echo free space represents a pericardial fat pad. There is a trivial pericardial effusion present. CONCLUSIONS -------- 1. LV size, wall thickness and systolic function are normal, with an EF greater than 55%. 2. The left ventricular size is normal. 3. The right ventricle is normal in size. 4. Normal LA size by volume 22+/-6 ml/m2. 5. The right atrial size is normal. 6. There is mild aortic valve sclerosis. 7. There is mild aortic regurgitation. 8. Mild mitral annular calcification present. 9. Mild mitral regurgitation is present. 10. Mild tricuspid regurgitation present. 11. Trace/mild (physiologic) pulmonic regurgitation. 12. Echo free space represents a pericardial fat pad. 13. There is a trivial pericardial effusion present. DEVELOPMENT SCIENTIST: Ashley Eddy RDCS
--- NOTE | 2021-03-25 11:05 | MR ---
EXAMINATION TYPE: MR brain wo/w con DATE OF EXAM: 03/25/2021 COMPARISON: CT brain 03/24/2021 HISTORY: Headache with left facial weakness, R/O CVA or mass CONTRAST: Performed utilizing 8 mL intravenous Gadavist gadolinium contrast. TECHNIQUE: Multiplanar, multiecho imaging on a 3.0 Darlin magnet is performed through the brain. Stud y is performed within 24 hours of arrival to the hospital. The craniovertebral junction is normal. The pituitary is normal. Diffusion-weighted imaging is performed. No abnormal hyperintensity is present to suggest an acute i ntracranial infarct or acute ischemic change. Hyperintensities within the deep white matter including the brainstem. Findings can be related to chr onic white matter ischemic change. Differential diagnosis could include vasculitis, multiple sclerosi s, migraine headaches. Ventricles and sulci are appropriate for the patient age. IMPRESSIONS: 1. Chronic appearing periventricular and brainstem white matter changes, most likely on the basis of chronic white matter ischemic change.
--- NOTE | 2021-03-25 13:22 | P.PN ---
Subjective Progress Note Date: 03/25/21 81 years old female patient of Dr. Childs with past medical history of hyperlipidemia comes in with acute onset of headache associated with abdominal pain for the past 3 days. Patient has not been eating at home and had some soup last night. Patient denies eating outside denies any fever or chills at home. She has been feeling unwell for the past 3 days but denies any other symptoms. Patient did not notice the left-sided droop until evaluated by the ER. Headache has improved since patient got some Tylenol . Patient had a fever of 100.8 Patient does document fatigue and significant abdominal pain which brought her to the hospital. Abdominal pain has improved with Zofran. Vitals were evaluated patient and temp of 97.8 pulse 77 respiratory rate 18 blood pressure 163/76. Labs are reviewed patient has a hemoglobin of 15 MCV 5043.9 platelets 317 with a sodium 136 potassium 4.6 chloride 105 bicarb 22 BUN 14 creatinine 0.7 glucose 165 chest x-ray suggested no acute process CT of the brain shows no acute hemorrhage or shift. Mild diffuse age-related cerebral atrophy with mild to moderate chronic small vessel ischemic changes CT angiogram suggestive of mild to moderate plaque in the proximal internal carotid arteries bilaterally without significant stenosis no significant sten osis or aneurysm at the level of [place] ECG suggestive, sinus rhythm and incomplete right bundle branch block 03/25: Patient has been seen by neurology for peripheral facial palsy on the left likely Cutler's palsy. MRI of the brain reveals chronic appearing periventricular and brainstem white matter changes most likely on the basis of chronic white matter ischemic change. Eye patch has been ordered as well as eyedrops for the left eye. Patient has been started on aspirin 325 mg daily continued on pravastatin. Echocardiogram reveals EF greater than 55%, mild aortic valve sclerosis, mild aortic regurgitation, mild mitral regurgitation, mild tricuspid regurgitation. TSH 1.070. Hemoglobin A1c 6.0. Triglycerides 99, cholesterol 159, LDL 79, HDL 60. HSV IgG positive at 11.2 and IgM antibodies negative at 0.3. Coronavirus PCR not detected. Lyme testing is pending. Consult with Dr. Hui is pending. Patient has had no fevers after admission. Heart rate 78, blood pressure 160/7 5, pulse ox 94% on room air. Discharge planning is home with homecare. ROS Constitutional: Endorses chills, endorses fever, endorses lethargy, endorses malaise Eyes: denies decreased vision, denies diplopia, denies discharge, denies pain endorses difficulty closing her eyes on the left side-eyepatch Ears: deny: decreased hearing Ears, nose, mouth and throat: Denies dental pain, endorses headache, Denies nasal discharge, Denies nose pain sores on the tongue on the left Cardiovascular: Denies chest pain, Denies decreased exercise tolerance, Denies edema, Denies high blood pressure, Denies irregular heart beat, Denies palpitations, Denies paroxysmal nocturnal dyspnea, Denies rapid heart beat, Denies shortness of breath Respiratory: Denies congestion, Denies cough, Denies cough with sputum, Denies dyspnea, Denies home oxygen, Denies wheezing Gastrointestinal: Endorses abdominal pain, Denies change in bowel habits, Denies coffee ground emesis, Denies early satiety, Denies excessive gas, Denies heartburn, Denies hematemesis, Denies hematochezia, Denies loss of appetite, en dorses nausea and vomiting Genitourinary: Denies dysuria, Denies flank pain, Denies kidney stones, Denies menorrhagia, Denies urgency, Denies urinary frequency Musculoskeletal: Denies gait dysfunction, Denies limitation of motion, Denies morning stiffness, Denies muscle cramps Integumentary: Denies rash, Denies wounds, Denies brittle nails, Denies change in hair/nails, Denies darkening of skin Neurological: Denies balance difficulties, Denies change in speech, Denies double vision, Denies gait dysfunction, Denies loss of vision, Denies motor disturbance, Denies numbness, Denies paralysis, Denies paresthesias, Denies seizures endorses headache and endorses facial droop continue Psychiatric: Denies anxiety, Denies depression Endocrine: Denies excessive sweating, Denies excessive thirst, Denies high blood sugars, Denies palpitations Hematologic/Lymphatic: Denies easy bruising, Denies lymphadenopathy Physical exam - Constitutional General appearance: cooperative, no acute distress, visual facial droop on the left, appears tired, eyepatch on the left eye - EENT Eyes: anicteric sclerae, PERRLA, normal appearance, difficulty closing her eye on the left ENT: hearing grossly normal - Neck Neck: no lymphadenopathy, normal ROM, no other, no rigidity, no stridor, no thyromegaly - Respiratory Respiratory: bilateral: CTA, negative: diminished, dullness, rales, rhonchi - Cardiovascular Rhythm: regular Heart sounds: normal: S1, S2 Abnormal Heart Sounds: no systolic murmur, no diastolic murmur, no rub, no S3 Gallop, no S4 Gallop, no click, no other - Gastrointestinal General gastrointestinal: normal bowel sounds, soft and nontender - Integumentary Integumentary: no rash - Neurologic Neurologic: CNII-XII intact except for facial droop on the left, decreased wrinkles on the left forehead reduced nasal fold on the left, no slurring of speech better from vision intact, no motor or sensory deficit no gait instability [id number] test normal, normal proprioception normal reflexes - Musculoskeletal Musculoskeletal: gait normal, strength equal bilaterally - Psychiatric Psychiatric: A&O x's 3, appropriate affect Assessment and plan #1 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 Continue aspirin and pravastatin. Aspirin increased to 325 mg . PTOT evaluation. Lipid panel ordered. PTOT consulted #2 headache Rule out aseptic meningitis. Temporal arteritis appears unlikely ESR normal. No vision deficit. Headache improved with Tylenol. No neck rigidity. No confusion. Infectious disease consulted for possible lumbar puncture #3 fever likely acute viral illness. Patient's presentation could be suggestive of aseptic meningitis. Continue seizure precautions. Infectious disease consulted #4 abdominal pain no diarrhea no constipation improved with Reglan. Continue Zofran as needed for nausea Protonix started at 40 mg daily #5 hyperlipidemia continue pravastatin at 40 mg by mouth daily #6 DVT prophylaxis with heparin every 12 #7 GI prophylaxis with protonix 40 mg orally daily #8 CODE STATUS do not resuscitate DISCHARGE PLAN Home with home care Impression and plan of care have been directed as dictated by the signing physician. Whitney Garibay nurse practitioner acting as scribe for signing physician. Objective - Vital Signs Vital signs: Vital Signs Temp 99.2 F 03/25/21 07:00 Pulse 78 03/25/21 07:00 Resp 16 03/25/21 07:00 BP 160/75 03/25/21 07:00 Pulse Ox 94 L 03/25/21 07:00 Intake & Output 09/16/21 09/17/21 09/17/21 18:59 06:59 18:59 Weight 81.647 kg Other: # Voids 3 - Labs CBC & Chem 7: 03/24/21 09:56 03/24/21 09:56 Labs: Abnormal Lab Results - Last 24 Hours (Table) 03/24/21 03/24/21 03/24/21 Range/Units 09:56 09:56 09:56 APTT 21.8 L (22.0-30.0) sec Sodium 136 L (137-145) mmol/L Glucose 165 H (74-99) mg/dL Urine Ketones 1+ H (Negative) Ur Leukocyte Esterase Trace H (Negative) Amorphous Sediment Rare H (None) /hpf HSV II IgG (< or = 0.90) 03/24/21 Range/Units 16:13 APTT (22.0-30.0) sec Sodium (137-145) mmol/L Glucose (74-99) mg/dL Urine Ketones (Negative) Ur Leukocyte Esterase (Negative) Amorphous Sediment (None) /hpf HSV II IgG 11.20 H (< or = 0.90)
[2021-03-25] MEDS ORDERED: predniSONE 10 MG TAB PO SCH (13:30)
--- NOTE | 2021-03-25 13:39 | P.PN ---
Subjective Progress Note Date: 03/25/21 The patient is seen at bedside and she feels she is about the same. She feels her headaches are improved compared to initial presentation. Objective - Vital Signs Vital signs: Vital Signs Temp 99.2 F 03/25/21 07:00 Pulse 78 03/25/21 08:00 Resp 16 03/25/21 08:00 BP 160/75 03/25/21 07:00 Pulse Ox 94 L 03/25/21 07:00 Intake & Output 03/24/21 03/25/21 03/25/21 18:59 06:59 18:59 Intake Total 236 Balance 236 Weight 81.647 kg Intake: Oral 236 Other: # Voids 3 - Exam GENERAL: The patient is lying in bed and is not in acute distress. NEUROLOGICAL: Higher mental function: The patient is awake, alert, oriented to self, place and time. Patient is following commands. No aphasia and no neglect. Cranial nerves: The pupils are round, equal and reactive to light and accommodation. Visual mishra are full to confrontation throughout. Extraocular movement is intact no nystagmus is noted. Facial sensation is normal to touch throughout. The facial strength is has upper and lower facial weakness (left lower facial, puff her cheeks on the left side compared to right , easily to open left eye upon been shut, raising left eye with furrow). Hearing is normal bilaterally to hand rub. Tongue is midline and moved [id number] without any difficulty. Mild dysarthria is noted. Shoulder shrug is normal bilaterally. Motor: Gait is normal. The strength is 5 over 5 throughout. Normal tone and bulk. Cerebellum: Normal finger to nose heel to zamora bilaterally. She had end action tremor with finger to nose (she said old) Sensation: Sensation is normal to touch throughout. Reflexes (right/left): 2+ throughout. Plantars: On few time felt the left toe is upgoing but on repeated tried it was mute. Mute over the right. WORK-UP: Initial vital signs was blood pressure 163/76, heart rate is 77, respiratory of 18, temperature of 97.8 Fahrenheit oral pulse ox 100% room air. CBC with differential is unremarkable. the ESR is 6 which is within normal limits Chemistry panel is the glucose was 165 which is slightly elevated the rest does not seem remarkable. Weber virus patient are not detected. CT of the head is reported as no acute intracranial hemorrhage or midline shift. There is mild diffuse age-related cerebral atrophy and mild to moderate chronic small vessel ischemic changes noted. CT angiography of the head and neck was reported as mild to moderate plaque in the proximal internal carotid arteries bilaterally without significant stenosis. No significant stenosis or aneurysm at the level [place]. MR the brain is reported as chronic appearing periventricular and brainstem white matter changes, most likely on the basis of chronic white matter ischemic changes at. 2-D echo was reported as left ventricle size is normal. Ejection fraction greater than 55%. Normal left atrial size by volume. Lipid panel: Renny R 99, cholesterol 150, LDL 79 and HDL 60. TSH is 1.07. Hemoglobin A1c is 6.0. 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 Possibly viral. No acute or subacute stroke on MRI. Current Hypertension possibly due to her headache History of hyperlipidemia Plan: I started the patient on Valacyclovir 1 gram tid for 7 days and Prednisone 50mg PO for 5 days then followed by 10mg less each day for 5 days. Will defer glucose monitoring and management to primary team. Recommend left eye patch and eyes drops to keep the eye moist to prevent corneal ulcer. Patient was started on aspirin 325mg daily and I decreased it to 81mg daily. The patient's home dose of Pravastatin 40mg qhs. Neuro checks. Consulted PT and OT On cardiac monitoring We'll defer the rest of the medical management to the primary team. For DVT prophylaxis we'll defer that to the primary team. Upon discharge, the patient needs to follow-up with a neurologist as outpatient within 1-2 weeks. Patient was told to follow-up for further work-up of her Cutler's (she wants any additional work-up as outpatient). The plan is discussed with patient and her daughter. There is no further neurological work-up. She is clear from neurological stand point. Mario Key MD Neuro-Hospitalist Time with Patient: Less than 30
--- NOTE | 2021-03-25 14:31 | P.DS ---
Providers Date of admission: 03/24/21 11:36 Expected date of discharge: 03/25/21 Attending physician: Carolyne Dyson MD Consults: 03/24/21 11:35 Consult Physician Urgent Consulting Provider: Mario Key Consult Reason/Comments: Headache and facial weakness, evaluate for CVA Do you want consulting provider notified?: Already Contacted 03/24/21 15:00 Consult Physician Routine Consulting Provider: Valeria Hui Consult Reason/Comments: fever, facial paralysis , headache, r/o aseptic meningitis Do you want consulting provider notified?: Yes Primary care physician: Clarence Childs [facility] Course: 81 years old female patient of Dr. Childs with past medical history of hyperlipidemia comes in with acute onset of headache associated with abdominal pain for the past 3 days. Patient has not been eating at home and had some soup last night. Patient denies eating outside denies any fever or chills at home. She has been feeling unwell for the past 3 days but denies any other symptoms. Patient did not notice the left-sided droop until evaluated by the ER. Headache has improved since patient got some Tylenol . Patient had a fever of 100.8 Patient does document fatigue and significant abdominal pain which brought her to the hospital. Abdominal pain has improved with Zofran. Vitals were evaluated patient and temp of 97.8 pulse 77 respiratory rate 18 blood pressure 163/76. Labs are reviewed patient has a hemoglobin of 15 MCV 5043.9 platelets 317 with a sodium 136 potassium 4.6 chloride 105 bicarb 22 BUN 14 creatinine 0.7 glucose 165 chest x-ray suggested no acute process CT of the brain shows no acute hemorrhage or shift. 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 MRI of the brain reveals chronic appearing periventricular and brainstem white matter changes most likely on the basis of chronic white matter ischemic change. Eye patch has been ordered as well as eyedrops for the left eye. Patient has been started on aspirin 325 mg daily continued on pravastatin. Echocardiogram reveals EF greater than 55%, mild aortic valve sclerosis, mild aortic regurgitation, mild mitral regurgitation, mild tricuspid regurgitation. TSH 1.070. Hemoglobin A1c 6.0. Triglycerides 99, cholesterol 159, LDL 79, HDL 60. HSV IgG positive at 11.2 and IgM antibodies negative at 0.3. Coronavirus PCR not detected. Lyme testing is pending. Consult with Dr. Hui is pending. Patient has had no fevers after admission. Heart rate 78, blood pressure 160/75, pulse ox 94% on room air. Discharge planning is home with homecare. Dr. Key has started the patient on Valtrex 1 g 3 times daily for 7 days and prednisone 50 mg oral for 5 days followed by 10 mg less each day for 5 days and he has cleared the patient for discharge. Patient has been seen by Dr. Hui and cleared for discharge. Patient will be discharged in stable condition.. 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 #2 headache Ruled out aseptic meningitis. #3 fever likely acute viral illness. #4 abdominal pain #5 hyperlipidemia DISCHARGE PLAN Home with home care Impression and plan of care have been directed as dictated by the signing physician. Whitney Garibay nurse practitioner acting as scribe for signing physician. Patient Condition at Discharge: Good Plan - Discharge Summary Discharge Rx Participant: Yes New Discharge Prescriptions: New valACYclovir HCL [Valtrex] 1,000 mg PO Q8HR #21 tab Artificial Tears Ointment [Lubrifresh Pm Ointment] 1 applic LEFT EYE TID PRN gm PRN Reason: Dry Eye(S) predniSONE 0 mg PO DIRECTED #35 tab Continue Magnesium Oxide [Mag-Ox] 250 mg PO DAILY Fish Oil/Dha/Epa [Fish Oil 1,200 mg Fish Oil] 1,000 mg PO BID Calcium Carbonate/Vitamin D3 [Caltrate 600 Plus D3 Tablet] 1 tab PO BID Pravastatin Sodium [Pravachol] 40 mg PO HS Aspirin 81 mg PO DAILY Multivitamins, Thera [Multivitamin (formulary)] 1 tab PO DAILY Cholecalciferol [Vitamin D3 (25 Mcg = 1000 Iu)] 1,000 unit PO DAILY DULoxetine HCL [Cymbalta] 30 mg PO HS Celecoxib [CeleBREX] 200 mg PO BID Chromium Picolinate 200 mcg PO DAILY Discharge Medication List Aspirin 81 mg PO DAILY 12/23/13 [History] Calcium Carbonate/Vitamin D3 [Caltrate 600 Plus D3 Tablet] 1 tab PO BID 12/23/13 [History] Cholecalciferol [Vitamin D3 (25 Mcg = 1000 Iu)] 1,000 unit PO DAILY 12/23/13 [History] Fish Oil/Dha/Epa [Fish Oil 1,200 mg Fish Oil] 1,000 mg PO BID 12/23/13 [History] Magnesium Oxide [Mag-Ox] 250 mg PO DAILY 12/23/13 [History] Multivitamins, Thera [Multivitamin (formulary)] 1 tab PO DAILY 12/23/13 [History] Pravastatin Sodium [Pravachol] 40 mg PO HS 12/23/13 [History] Celecoxib [CeleBREX] 200 mg PO BID 08/20/18 [History] Chromium Picolinate 200 mcg PO DAILY 08/20/18 [History] DULoxetine HCL [Cymbalta] 30 mg PO HS 08/20/18 [History] Artificial Tears Ointment [Lubrifresh Pm Ointment] 1 applic LEFT EYE TID PRN gm 03/25/21 [Rx] predniSONE 0 mg PO DIRECTED #35 tab 03/25/21 [Rx] valACYclovir HCL [Valtrex] 1,000 mg PO Q8HR #21 tab 03/25/21 [Rx] Follow up Appointment(s)/Referral(s): [facility], [NON-STAFF] - Clarence Childs MD [Primary Care Provider] - 1 Week Julio Pineda MD [REFERRING] - 1 Week Discharge Disposition: HOME WITH HOME HEALTH SERVICES
[2021-03-25 15:38] VITALS: BP 138/70; PULSE 68; TEMP 97.7
[2021-03-25] MEDS ORDERED: valACYclovir HCL 1,000 MG TABLET PO SCH (16:00)
[2021-03-26] MEDS ORDERED: ASPIRIN 81 MG PO SCH (09:00)
== END 2021-03-25 17:11 | disposition home health service (06) ==
LOC: EC 09:04 → 6NMEDSUR 11:36
PROVIDERS: ADMIT Internal Medicine; ATTEND Internal Medicine
DX: G51.0 Bell's palsy (principal); E78.5 Hyperlipidemia, unspecified; I10 Essential (primary) hypertension; Z20.822 Contact with and (suspected) exposure to COVID-19; R51.9 Headache, unspecified; R50.9 Fever, unspecified; R10.9 Unspecified abdominal pain; R53.83 Other fatigue; I65.29 Occlusion and stenosis of unspecified carotid artery; H93.19 Tinnitus, unspecified ear; I45.19 Other right bundle-branch block; L91.8 Other hypertrophic disorders of the skin; Z79.82 Long term (current) use of aspirin; Z79.899 Other long term (current) drug therapy; Z79.1 Long term (current) use of non-steroidal anti-inflammatories (NSAID); Z88.0 Allergy status to penicillin; Z88.1 Allergy status to other antibiotic agents; Z88.2 Allergy status to sulfonamides; Z88.8 Allergy status to other drugs, medicaments and biological substances; Z88.6 Allergy status to analgesic agent; Z66 Do not resuscitate; Z96.651 Presence of right artificial knee joint; Z82.0 Family history of epilepsy and other diseases of the nervous system
CPT/HCPCS: 99285; 96361 ×3; 96372 ×2; 96374; 96375; 36415; 93005; 93306; 80061; 80053; 86696; 86694; 86695; 85652; 84443; 85025; 85610; 85730; 81001; 87040; 86618; 83036; 87635; 71046; 70496; 70450; 70498; 70553; G0378 ×2; J2270; J2765; J7512; Q9967; J1644 ×2; A9585

== ENCOUNTER → 2021-04-22 | Outpatient (CLI) | payer MEDICARE ==
[2021-04-22 16:24] LABS: Basophils # (A) 0.06 X 10*3/uL (0.00-0.10); Basophils % (A) 0.8 %; Eosinophils # (A) 0.29 X 10*3/uL (0.04-0.35); Eosinophils % (A) 3.7 %; HGB 14.8 g/dL (12.0-15.0); Lymphocytes # (A) 2.37 X 10*3/uL (0.90-5.00); Lymphocytes % (A) 30.6 %; MCHC 32.9 g/dL (32.0-37.0); MCV 91.3 fL (80.0-97.0); Mean Platelet Volume 9.4 fL (9.5-12.2); Monocytes # (A) 0.55 X 10*3/uL (0.20-1.00); Monocytes % (A) 7.1 %; Neutrophils # (A) 4.46 X 10*3/uL (1.80-7.70); Neutrophils % (A) 57.5 %; Platelet Count 296 X 10*3/uL (140-440); RBC 4.93 X 10*6/uL (4.10-5.20); RDW 13.6 % (11.5-14.5); WBC 7.75 X 10*3/uL (4.50-10.00)
[2021-04-22 20:44] LABS: African American GFR (CKD) 83.5 (60.0-200.0); Albumin 4.1 g/dL (3.8-4.9); Albumin/Globulin Ratio 2.17 (1.60-3.17); BUN/Creat Ratio 16.56 Ratio (12.00-20.00); Blood Urea Nitrogen 12.8 mg/dL (9.0-27.0); Calcium 9.3 mg/dL (8.7-10.3); Carbon Dioxide 18.3 mmol/L (21.6-31.8); Chol/HDL Ratio 2.34 Ratio; Globulin 1.9 g/dL (1.6-3.3); HDL Cholesterol 72.5 mg/dL (40.00-60.00); Non-African American GFR(CKD) 72.1 (60.0-200.0); Potassium 4.2 mmol/L (3.5-5.5); Total Bilirubin 0.5 mg/dL (0.30-1.20); Triglycerides 97.7 mg/dL (0.00-149.00); VLDL Calculation 19.54 mg/dL (5.00-40.00)
== END | disposition home or self-care (01) ==
LOC: LABWHC1 09:31
PROVIDERS: ATTEND Family Medicine
DX: G51.0 Bell's palsy (principal); E55.9 Vitamin D deficiency, unspecified; R73.9 Hyperglycemia, unspecified
CPT/HCPCS: 36415; 80053; 80061; 82306; 83036; 84443; 85025

== ENCOUNTER 2021-10-25 02:35 | Emergency (ER) | payer MEDICARE ==
--- NOTE | 2021-10-25 02:52 | ED ---
Abdominal Pain HPI - General Chief Complaint: Abdominal Pain Stated Complaint: Abdominal pain Time Seen by Provider: 10/25/21 02:40 Source: EMS Mode of arrival: EMS - History of Present Illness Initial Comments: This patient is an 81-year-old woman brought by ambulance to have evaluation for abdominal pain, vomiting and diarrhea. The patient is not able to characterize her symptoms well, was just stating that she is "sick" MD Complaint: abdominal pain -: hour(s) Location: diffuse Radiation: none Severity: severe Consistency: constant Improves With: nothing Worsens With: nothing Associated Symptoms: nausea, vomiting, diarrhea - Related Data Home Medications Medication Instructions Recorded Confirmed Aspirin 81 mg PO DAILY 12/23/13 03/24/21 Calcium Carbonate/Vitamin D3 1 tab PO BID 12/23/13 03/24/21 [Caltrate 600 Plus D3 Tablet] Cholecalciferol [Vitamin D3 (25 1,000 unit PO DAILY 12/23/13 03/24/21 Mcg = 1000 Iu)] Fish Oil/Dha/Epa [Fish Oil 1,200 1,000 mg PO BID 12/23/13 03/24/21 mg Fish Oil] Magnesium Oxide [Mag-Ox] 250 mg PO DAILY 12/23/13 03/24/21 Multivitamins, Thera [Multivitamin 1 tab PO DAILY 12/23/13 03/24/21 (formulary)] Pravastatin Sodium [Pravachol] 40 mg PO HS 12/23/13 03/24/21 Celecoxib [CeleBREX] 200 mg PO BID 08/20/18 03/24/21 Chromium Picolinate 200 mcg PO DAILY 08/20/18 03/24/21 DULoxetine HCL [Cymbalta] 30 mg PO HS 08/20/18 03/24/21 Previous Rx's Medication Instructions Recorded Artificial Tears Ointment 1 applic LEFT EYE TID PRN gm 03/25/21 [Lubrifresh Pm Ointment] predniSONE 0 mg PO DIRECTED #35 tab 03/25/21 valACYclovir HCL [Valtrex] 1,000 mg PO Q8HR #21 tab 03/25/21 Allergies Allergy/AdvReac Type Severity Reaction Status Date / Time cephalexin monohydrate Allergy Rash/Hives Verified 10/25/21 02:46 [From Keflex] ciprofloxacin [From Cipro] Allergy Rash/Hives Verified 10/25/21 02:46 ciprofloxacin HCl Allergy Rash/Hives Verified 10/25/21 02:46 [From Cipro] fluconazole [From Diflucan] Allergy Rash/Hives Verified 10/25/21 02:46 fluticasone [From Flonase] Allergy Rash/Hives Verified 10/25/21 02:46 levofloxacin [From Levaquin] Allergy Rash/Hives Verified 10/25/21 02:46 Penicillins Allergy Rash/Hives Verified 10/25/21 02:46 sulfamethoxazole Allergy Rash/Hives Verified 10/25/21 02:46 [From Bactrim] trimethoprim [From Bactrim] Allergy Rash/Hives Verified 10/25/21 02:46 Review of Systems ROS Statement: Those systems with pertinent positive or pertinent negative responses have been documented in the HPI. ROS Other: All systems not noted in ROS Statement are negative. Constitutional: Denies: fever Respiratory: Denies: cough Cardiovascular: Denies: chest pain Gastrointestinal: Reports: abdominal pain, nausea, vomiting, diarrhea Genitourinary: Denies: dysuria, hematuria Musculoskeletal: Denies: back pain Skin: Denies: rash Neurological: Denies: headache Past Medical History Past Medical History: Hyperlipidemia Additional Past Medical History / Comment(s): HAS RED SPOT ON RT SIDE HIP, WHERE SKIN TAG IS. History of Any Multi-Drug Resistant Organisms: None Reported Past Surgical History: Joint Replacement Additional Past Surgical History / Comment(s): TOTAL RT KNEE Past Anesthesia/Blood Transfusion Reactions: No Reported Reaction Additional Past Anesthesia/Blood Transfusion Reaction / Comment(s): MOTION SICKNESS IN CHILDHOOD Past Psychological History: No Psychological Hx Reported Smoking Status: Never smoker Past Alcohol Use History: None Reported Past Drug Use History: None Reported General Exam General appearance: alert Head exam: Present: atraumatic, normocephalic Eye exam: Present: normal appearance. Absent: scleral icterus, conjunctival injection ENT exam: Present: normal oropharynx Neck exam: Present: normal inspection, full ROM Respiratory exam: Present: normal lung sounds bilaterally. Absent: respiratory distress, wheezes, rales, rhonchi, stridor Cardiovascular Exam: Present: regular rate, normal rhythm, normal heart sounds. Absent: systolic murmur, diastolic murmur, rubs, gallop GI/Abdominal exam: Present: soft, tenderness. Absent: distended, guarding, rebound, rigid, mass Extremities exam: Present: normal inspection, normal capillary refill. Absent: pedal edema, calf tenderness Back exam: Present: normal inspection. Absent: CVA tenderness (R), CVA tenderness (L) Neurological exam: Present: alert Skin exam: Present: warm, dry, intact, normal color. Absent: rash Course Vital Signs 10/25/21 10/25/21 02:41 03:20 Temperature 97.6 F Pulse Rate 70 Respiratory 22 Rate Blood Pressure 145/80 O2 Sat by Pulse 99 Oximetry Medical Decision Making - Medical Decision Making This patient is an 81-year-old woman presenting with abdominal pain, nausea, vomiting and diarrhea. She has had marked improvement following medication and fluids here. She feels well and would like to go home. On reassessment there is no tenderness in the abdomen. Tolerating oral intake. - Lab Data Result diagrams: 10/25/21 02:52 10/25/21 02:52 Lab Results 10/25/21 10/25/21 10/25/21 Range/Units 02:52 02:52 02:52 WBC 12.6 H (3.8-10.6) k/uL RBC 5.04 (3.80-5.40) m/uL Hgb 15.7 (11.4-16.0) gm/dL Hct 46.0 (34.0-46.0) % MCV 91.2 (80.0-100.0) fL MCH 31.2 (25.0-35.0) pg MCHC 34.3 (31.0-37.0) g/dL RDW 13.1 (11.5-15.5) % Plt Count 367 (150-450) k/uL MPV 7.1 Neutrophils % 76 % Lymphocytes % 18 % Monocytes % 3 % Eosinophils % 1 % Basophils % 1 % Neutrophils # 9.5 H (1.3-7.7) k/uL Lymphocytes # 2.3 (1.0-4.8) k/uL Monocytes # 0.4 (0-1.0) k/uL Eosinophils # 0.1 (0-0.7) k/uL Basophils # 0.1 (0-0.2) k/uL Sodium 136 L (137-145) mmol/L Potassium 3.8 (3.5-5.1) mmol/L Chloride 104 (98-107) mmol/L Carbon Dioxide 20 L (22-30) mmol/L Anion Gap 12 mmol/L BUN 15 (7-17) mg/dL Creatinine 0.89 (0.52-1.04) mg/dL Est GFR (CKD-EPI)AfAm 70 (>60 ml/min/1.73 sqM) Est GFR (CKD-EPI)NonAf 61 (>60 ml/min/1.73 sqM) Glucose 192 H (74-99) mg/dL Lactic Ac Sepsis Rflx Plasma Lactic Acid Crow 4.1 H* (0.7-2.0) mmol/L Calcium 10.0 (8.4-10.2) mg/dL Total Bilirubin 1.0 (0.2-1.3) mg/dL AST 28 (14-36) U/L ALT 19 (4-34) U/L Alkaline Phosphatase 88 (38-126) U/L Troponin I (0.000-0.034) ng/mL C-Reactive Protein <0.5 (<1.0) mg/dL Total Protein 6.7 (6.3-8.2) g/dL Albumin 4.1 (3.5-5.0) g/dL Amylase 54 (30-110) U/L Lipase 82 (23-300) U/L Urine Color Urine Appearance (Clear) Urine pH (5.0-8.0) Ur Specific [place] (1.001-1.035) Urine Protein (Negative) Urine Glucose (UA) (Negative) Urine Ketones (Negative) Urine Blood (Negative) Urine Nitrite (Negative) Urine Bilirubin (Negative) Urine Urobilinogen (<2.0) mg/dL Ur Leukocyte Esterase (Negative) Coronavirus (PCR) (Not Detectd) 10/25/21 10/25/21 10/25/21 Range/Units 02:52 03:34 04:48 WBC (3.8-10.6) k/uL RBC (3.80-5.40) m/uL Hgb (11.4-16.0) gm/dL Hct (34.0-46.0) % MCV (80.0-100.0) fL MCH (25.0-35.0) pg MCHC (31.0-37.0) g/dL RDW (11.5-15.5) % Plt Count (150-450) k/uL MPV Neutrophils % % Lymphocytes % % Monocytes % % Eosinophils % % Basophils % % Neutrophils # (1.3-7.7) k/uL Lymphocytes # (1.0-4.8) k/uL Monocytes # (0-1.0) k/uL Eosinophils # (0-0.7) k/uL Basophils # (0-0.2) k/uL Sodium (137-145) mmol/L Potassium (3.5-5.1) mmol/L Chloride (98-107) mmol/L Carbon Dioxide (22-30) mmol/L Anion Gap mmol/L BUN (7-17) mg/dL Creatinine (0.52-1.04) mg/dL Est GFR (CKD-EPI)AfAm (>60 ml/min/1.73 sqM) Est GFR (CKD-EPI)NonAf (>60 ml/min/1.73 sqM) Glucose (74-99) mg/dL Lactic Ac Sepsis Rflx Y Plasma Lactic Acid Crow (0.7-2.0) mmol/L Calcium (8.4-10.2) mg/dL Total Bilirubin (0.2-1.3) mg/dL AST (14-36) U/L ALT (4-34) U/L Alkaline Phosphatase (38-126) U/L Troponin I <0.012 (0.000-0.034) ng/mL C-Reactive Protein (<1.0) mg/dL Total Protein (6.3-8.2) g/dL Albumin (3.5-5.0) g/dL Amylase (30-110) U/L Lipase (23-300) U/L Urine Color Light Yellow Urine Appearance Clear (Clear) Urine pH 8.0 (5.0-8.0) Ur Specific [place] 1.020 (1.001-1.035) Urine Protein Negative (Negative) Urine Glucose (UA) 1+ H (Negative) Urine Ketones 2+ H (Negative) Urine Blood Negative (Negative) Urine Nitrite Negative (Negative) Urine Bilirubin Negative (Negative) Urine Urobilinogen <2.0 (<2.0) mg/dL Ur Leukocyte Esterase Negative (Negative) Coronavirus (PCR) (Not Detectd) 10/25/21 Range/Units 04:53 WBC (3.8-10.6) k/uL RBC (3.80-5.40) m/uL Hgb (11.4-16.0) gm/dL Hct (34.0-46.0) % MCV (80.0-100.0) fL MCH (25.0-35.0) pg MCHC (31.0-37.0) g/dL RDW (11.5-15.5) % Plt Count (150-450) k/uL MPV Neutrophils % % Lymphocytes % % Monocytes % % Eosinophils % % Basophils % % Neutrophils # (1.3-7.7) k/uL Lymphocytes # (1.0-4.8) k/uL Monocytes # (0-1.0) k/uL Eosinophils # (0-0.7) k/uL Basophils # (0-0.2) k/uL Sodium (137-145) mmol/L Potassium (3.5-5.1) mmol/L Chloride (98-107) mmol/L Carbon Dioxide (22-30) mmol/L Anion Gap mmol/L BUN (7-17) mg/dL Creatinine (0.52-1.04) mg/dL Est GFR (CKD-EPI)AfAm (>60 ml/min/1.73 sqM) Est GFR (CKD-EPI)NonAf (>60 ml/min/1.73 sqM) Glucose (74-99) mg/dL Lactic Ac Sepsis Rflx Plasma Lactic Acid Crow (0.7-2.0) mmol/L Calcium (8.4-10.2) mg/dL Total Bilirubin (0.2-1.3) mg/dL AST (14-36) U/L ALT (4-34) U/L Alkaline Phosphatase (38-126) U/L Troponin I (0.000-0.034) ng/mL C-Reactive Protein (<1.0) mg/dL Total Protein (6.3-8.2) g/dL Albumin (3.5-5.0) g/dL Amylase (30-110) U/L Lipase (23-300) U/L Urine Color Urine Appearance (Clear) Urine pH (5.0-8.0) Ur Specific [place] (1.001-1.035) Urine Protein (Negative) Urine Glucose (UA) (Negative) Urine Ketones (Negative) Urine Blood (Negative) Urine Nitrite (Negative) Urine Bilirubin (Negative) Urine Urobilinogen (<2.0) mg/dL Ur Leukocyte Esterase (Negative) Coronavirus (PCR) Not Detected (Not Detectd) Disposition Clinical Impression: Abdominal pain, Gastroenteritis Disposition: HOME SELF-CARE Condition: Good Instructions (If sedation given, give patient instructions): Abdominal Pain (ED) Is patient prescribed a controlled substance at d/c from ED?: No Referrals: None,Stated [REFERRING] - 1-2 days
[2021-10-25 03:05] LABS: Basophils # (A) 0.1 k/uL (0-0.2); Basophils % (A) 1 %; Eosinophils # (A) 0.1 k/uL (0-0.7); Eosinophils % (A) 1 %; HGB 15.7 gm/dL (11.4-16.0); Lymphocytes # (A) 2.3 k/uL (1.0-4.8); Lymphocytes % (A) 18 %; MCH 31.2 pg (25.0-35.0); MCHC 34.3 g/dL (31.0-37.0); MCV 91.2 fL (80.0-100.0); Mean Platelet Volume 7.1; Monocytes # (A) 0.4 k/uL (0-1.0); Monocytes % (A) 3 %; Neutrophils # (A) 9.5 k/uL (1.3-7.7); Neutrophils % (A) 76 %; Platelet Count 367 k/uL (150-450); RBC 5.04 m/uL (3.80-5.40); RDW 13.1 % (11.5-15.5); WBC 12.6 k/uL (3.8-10.6)
[2021-10-25 03:23] LABS: ALT 19 U/L (4-34); AST 28 U/L (14-36); African American GFR (CKD) 70 (>60 ml/min/1.73 sqM); Albumin 4.1 g/dL (3.5-5.0); Alkaline Phosphatase 88 U/L (38-126); Amylase 54 U/L (30-110); Anion Gap 12 mmol/L; Blood Urea Nitrogen 15 mg/dL (7-17); C Reactive Protein <0.5 mg/dL (<1.0); Carbon Dioxide 20 mmol/L (22-30); Chloride 104 mmol/L (98-107); Glucose 192 mg/dL (74-99); Lipase 82 U/L (23-300); Non-African American GFR(CKD) 61 (>60 ml/min/1.73 sqM); Potassium 3.8 mmol/L (3.5-5.1); Sodium 136 mmol/L (137-145); Total Protein 6.7 g/dL (6.3-8.2)
[2021-10-25] MEDS ORDERED: SODIUM CHLORIDE 0.9% 1,000 ML IV ONE ×2 (03:34→04:31)
[2021-10-25] MEDS ORDERED: MORPHINE SULFATE 4 MG/ML SYRINGE IV STA (03:43)
[2021-10-25] MEDS ORDERED: ONDANSETRON 4 MG/2 ML VIAL IVP STA (03:43)
--- NOTE | 2021-10-25 04:15 | CT ---
EXAMINATION TYPE: CT abdomen pelvis w con DATE OF EXAM: 10/25/2021 COMPARISON: 02/24/2020 HISTORY: pain CT DLP: 1138.5 mGycm Automated exposure control for dose reduction was used. CONTRAST: Performed with IV Contrast, patient injected with 100 mL of Isovue 300. There is some mild groundglass interstitial infiltrates at the lung bases. Heart is borderline enlarg ed. No pericardial effusion. No pleural effusion. Liver spleen pancreas appear intact. Gallbladder appears normal. The stomach is intact. There is no adrenal mass. Kidneys show satisfactory contrast opacification. There is no hydronephrosi s. Delayed images show normal renal excretion. Appendix is posterior and appears normal. Ureters are not dilated. Bladder distends smoothly. There is no inguinal hernia. No free fluid in the pelvis. The re are multiple sigmoid diverticula. No diverticulitis. Uterus is anteverted. There are spondylotic c hanges in the lumbar spine. There is vacuum disc at L3-4 and L4-5. No compression fracture. Bony pelv is is intact. There is spurring at the hip joints. There is no mesenteric edema. No ascites or free air. No bowel obstruction. IMPRESSION: No acute abnormality of the abdomen and pelvis. Colonic diverticulosis. Interstitial mild infiltrates at the lung bases.
[2021-10-25 04:54] LABS: Appearance,Urine Clear (Clear); Bilirubin,Urine Negative (Negative); Blood,Urine Negative (Negative); Color,Urine Light Yellow; Glucose,Urine (UA) 1+ (Negative); Leukocyte Esterase,Urine Negative (Negative); Nitrite,Urine Negative (Negative); Protein,Urine Negative (Negative); Urobilinogen,Urine <2.0 mg/dL (<2.0)
[2021-10-25 05:07] LABS: Ketones,Urine 2+ (Negative)
[2021-10-25 06:38] VITALS: BP 149/65; PULSE 66; RESP 18; TEMP 97.5
== END 2021-10-25 06:58 | disposition home or self-care (01) ==
LOC: EC 02:35
DX: K52.9 Noninfective gastroenteritis and colitis, unspecified (principal); Z20.822 Contact with and (suspected) exposure to COVID-19; E78.5 Hyperlipidemia, unspecified; Z79.899 Other long term (current) drug therapy
CPT/HCPCS: 36415; 80053; 82150; 83605; 83690; 84484; 85025; 86140; 81003; 87635; 74177; 99284; 96374; 96375; 96361 ×2; J2270; J2405; Q9967

== ENCOUNTER → 2022-12-21 | Outpatient (CLI) | payer MEDICARE ==
[2022-12-21 21:28] LABS: Basophils # (A) 0.07 X 10*3/uL (0.00-0.10); Basophils % (A) 0.8 %; Eosinophils # (A) 0.38 X 10*3/uL (0.04-0.35); Eosinophils % (A) 4.3 %; HCT 41.6 % (37.2-46.3); HGB 13.6 d/dL (12.0-15.0); Lymphocytes % (A) 41.4 %; MCH 31.1 pg (27.0-32.0); MCHC 32.7 d/dL (32.0-37.0); Mean Platelet Volume 9.6 FL (9.5-12.2); Monocytes # (A) 0.65 X 10*3/uL (0.20-1.00); Monocytes % (A) 7.3 %; NRBC Per 100 WBC 0 X 10*3/uL (0.00-0.01); Neutrophils # (A) 4.11 X 10*3/uL (1.80-7.70); Neutrophils % (A) 45.9 %; Platelet Count 284 X 10*3/uL (140-440); RBC 4.38 X 10*6/uL (4.10-5.20); RDW 12.8 % (11.5-14.5); WBC 8.94 X 10*3/uL (4.50-10.00)
[2022-12-22 02:40] LABS: ALT 14 U/L (8-44); AST 18 U/L (13-35); Albumin 4.1 d/dL (3.8-4.9); Albumin/Globulin Ratio 2.28 Ratio (1.60-3.17); Alkaline Phosphatase 63 U/L (41-126); Calcium 10.6 mg/dL (8.7-10.3); Carbon Dioxide 26.5 mmol/L (21.6-31.8); Chloride 103 mmol/L (96-109); Globulin 1.8 d/dL (1.6-3.3); Glucose 101 mg/dL (70-110); Potassium 4.4 mmol/L (3.5-5.5); Sodium 139 mmol/L (135-145); Total Bilirubin 0.3 mg/dL (0.3-1.2); Total Protein 5.9 d/dL (6.2-8.2)
== END | disposition home or self-care (01) ==
LOC: LABWHC1 16:11
PROVIDERS: ATTEND Family Medicine
DX: E55.9 Vitamin D deficiency, unspecified (principal); R63.4 Abnormal weight loss
CPT/HCPCS: 36415; 80053; 82306; 84443; 85025

== ENCOUNTER → 2023-03-01 | Outpatient (CLI) | payer MEDICARE ==
--- NOTE | 2023-03-01 16:40 | XR ---
EXAMINATION TYPE: XR chest 2V DATE OF EXAM: 03/01/2023 3:49 PM COMPARISON: Chest radiographs from 03/24/2020 TECHNIQUE: XR chest 2V Frontal and lateral views of the chest. CLINICAL INDICATION:Female, 82 years old with history of R63.4; FINDINGS: Lungs/Pleura: There is no evidence of pleural effusion, focal consolidation, or pneumothorax. Elevati on the right hemidiaphragm with associated atelectasis. Hyperinflation. Pulmonary vascularity: Unremarkable. Heart/mediastinum: Cardiomediastinal silhouette is unremarkable. Musculoskeletal: No acute osseous pathology. IMPRESSION: 1. No acute cardiopulmonary disease/process. 2. COPD changes. 3. Elevation of the right hemidiaphragm with associated atelectasis.
== END | disposition home or self-care (01) ==
LOC: RADXRMAIN 15:26
PROVIDERS: ATTEND Family Medicine
DX: J44.9 Chronic obstructive pulmonary disease, unspecified (principal); J98.11 Atelectasis; R63.4 Abnormal weight loss
CPT/HCPCS: 71046

== ENCOUNTER → 2023-05-29 | Outpatient (CLI) | payer MEDICARE ==
--- NOTE | 2023-05-30 15:36 | BD ---
EXAMINATION TYPE: Axial Bone Density DATE OF EXAM: 05/29/2023 CLINICAL HISTORY: 83 years old Female. ICD-10 CODE: M81.0 AGE-RELATED OSTEOPOROSIS W/O CURRENT PATHO LO Height: 61 Weight: 135 FRAX RISK QUESTIONS: Alcohol (3 or more units per day): no Family History (Parent hip fracture): yes Glucocorticoids (More than 3mos): no (Ex: prednisone, prednisolone, methylprednisolone, dexamethasone, and hydrocortisone). History of Fracture in Adulthood: yes Secondary Osteoporosis: 1. Type 1 Diabetes: no 2. Hyperthyroidism: no 3. Menopause before 45: no 4. Malnutrition: no 5. Chronic liver disease: no Rheumatoid Arthritis: no Current Tobacco Use: no RISK FACTORS HISTORY OF: Surgery to Spine/Hip(right/left)/Wrist (right/left): no Additional History: EXAM MEASUREMENTS: Bone mineral densitometry was performed using the [employer] System. Bone mineral density as measured about the Lumbar spine is: ----- L1-L4(G/cm2): 1.676 T Score Values are as follows: ----- L1: 2.9 ----- L2: 3.6 ----- L3: 4.9 ----- L4: 5.2 ----- L1-L4: 4.1 Z Score Values are as follows: ----- L1: 4.9 ----- L2: 5.6 ----- L3: 6.9 ----- L4: 7.2 ----- L1-L4: 6.1 Bone mineral density has: increased 7.2 % since study of: 05.18.2015 Bone mineral density about the R hip (g/cm2): 1.055 Bone mineral density about the L hip (g/cm2): 0.987 T Score values are as follows: -----R Neck: 1.2 -----L Neck: -0.4 -----R Total: 0.4 -----L Total: -0.2 Z Score values are as follows: -----R Neck: 3.6 -----L Neck: 2.0 -----R Total: 2.6 -----L Total: 2.1 Bone mineral density has: decreased -5.0 % since study of: 05.18.2015 FRAX%s: The graph provided illustrates a 21.8% chance for a major osteoporotic fx and a 9.3% chance f or the hips probability for fx in 10 years time. IMPRESSION: Normal (Values between +1 and -1 indicate normal bone mass). Consider repeating this study in 5 year s or sooner if there is some new clinical indication. NOTE: T-SCORE=SD OF THE YOUNG ADULT MEAN.
== END | disposition home or self-care (01) ==
LOC: RADBDWWP 15:31
PROVIDERS: ATTEND Internal Medicine Geriatric Medicine
DX: M81.0 Age-related osteoporosis without current pathological fracture (principal)
CPT/HCPCS: 77080

== ENCOUNTER → 2024-06-17 | Outpatient (CLI) | payer MEDICARE ==
[2024-06-17 10:25] LABS: Basophils # (A) 0.07 X 10*3/uL (0.00-0.10); Basophils % (A) 1.1 %; Eosinophils # (A) 0.16 X 10*3/uL (0.04-0.35); Eosinophils % (A) 2.6 %; HCT 45.3 % (37.2-46.3); HGB 14.8 g/dL (12.0-15.0); Lymphocytes # (A) 2.07 X 10*3/uL (0.90-5.00); Lymphocytes % (A) 33.7 %; MCHC 32.7 g/dL (32.0-37.0); MCV 91.7 FL (80.0-97.0); Monocytes # (A) 0.45 X 10*3/uL (0.20-1.00); Monocytes % (A) 7.3 %; NRBC Per 100 WBC 0 X 10*3/uL (0.00-0.01); Neutrophils # (A) 3.39 X 10*3/uL (1.80-7.70); Neutrophils % (A) 55.1 %; Platelet Count 306 X 10*3/uL (140-440); RBC 4.94 X 10*6/uL (4.10-5.20); RDW 12.4 % (11.5-14.5); WBC 6.15 X 10*3/uL (4.50-10.00)
[2024-06-17 11:15] LABS: ALT 14 U/L (8-44); AST 23 U/L (13-35); Albumin 4.1 g/dL (3.8-4.9); Albumin/Globulin Ratio 1.95 Ratio (1.60-3.17); Alkaline Phosphatase 70 U/L (41-126); BUN/Creat Ratio 24.12 Ratio (12.00-20.00); Blood Urea Nitrogen 19.3 mg/dL (9.0-27.0); Calcium 9.5 mg/dL (8.7-10.3); Carbon Dioxide 23.9 mmol/L (21.6-31.8); Chloride 102 mmol/L (96-109); Chol/HDL Ratio 2.33 Ratio; Creatine Kinase 51 U/L (26-186); Globulin 2.1 g/dL (1.6-3.3); Glucose 135 mg/dL (70-110); LDL Cholesterol,Calculated 92.4 mg/dL (0.0-131.0); Potassium 4.4 mmol/L (3.5-5.5); Sodium 137 mmol/L (135-145); Total Bilirubin 0.5 mg/dL (0.3-1.2); Total Protein 6.2 g/dL (6.2-8.2)
== END | disposition home or self-care (01) ==
LOC: LABWHC1 07:36
PROVIDERS: ATTEND Internal Medicine Geriatric Medicine
DX: Z00.00 Encounter for general adult medical examination without abnormal findings (principal); I70.0 Atherosclerosis of aorta; E78.5 Hyperlipidemia, unspecified; R73.9 Hyperglycemia, unspecified
CPT/HCPCS: 36415; 80053; 80061; 82550; 83036; 84443; 85025